=== PATIENT | male | born 2000 | race Caucasian/White ===

== ENCOUNTER 2024-10-24 12:49 | Inpatient (IN) | payer OTHER, SELFPAY ==
[2024-10-24] VITALS (19 sets, daily range): BP systolic 93–122; BP diastolic 47–68; PULSE 60–111; RESP 14–22; TEMP 36.6–37.1; O2SAT 96–100; BMI 21.3
--- NOTE | ~2024-10-24 | XR_ITS ---
EXAMINATION: XR chest 1V portable Exam Date/Time: 10/24/2024 15:00 CDT HISTORY: syncopy Comparison: None. RESULT: Lines, tubes, and devices: None. Lungs and pleura: Clear. Cardiomediastinal silhouette: Normal. Other: No acute osseous or upper abdominal finding. IMPRESSION: No acute cardiopulmonary process. Reviewed, dictated and finalized at location K.
--- NOTE | ~2024-10-24 | CT_ITS ---
EXAMINATION: CT brain wo con DATE: 10/24/2024 13:41 INDICATION: Fall. Head injury. TECHNIQUE: Computed tomography (CT) of the head was performed without intravenous contrast. The dose- length product was 681.00 mGy-cm. COMPARISON: None FINDINGS: No acute intracranial hemorrhage. No mass effect. No midline shift. Hydrocephalus. No skull fracture identified. Visualized cranial sinuses and mastoid air cells are clear. IMPRESSION: 1. No acute intracranial process identified. Reviewed, dictated and finalized at location A.
--- NOTE | ~2024-10-24 | CT_ITS ---
CLINICAL INDICATION: Elevated transaminases COMPARISON: None. TECHNIQUE: Multiple contiguous axial images of the abdomen and pelvis were performed without the admi nistration of intravenous contrast The dose-length product (DLP) was 232.51 mGy-cm. Automated exposure control and iterative reconstruction technique were employed. FINDINGS/OBSERVATIONS: Visualized lower thorax: The bilateral lung bases are clear. The heart is of normal size, without pericardial effusion. Liver: The liver demonstrates homogeneous attenuation and is borderline enlarged measuring 19 cm in longitud inal dimension. Gallbladder and biliary system: The gallbladder is only minimally distended, and otherwise unremarkable. Pancreas: Limited evaluation of the pancreas secondary to the lack of intravenous contrast. Spleen: The spleen demonstrates homogeneous attenuation and is not enlarged. Kidneys: The bilateral kidneys are without hydronephrosis or renal calculi. Adrenal glands: Unremarkable. Gastrointestinal tract: Fecal stasis within the colon. Appendix: The appendix is not definitively visualized. However, no pericecal inflammatory change is identified suggest the presence of acute appendicitis. Vasculature: Unremarkable. Lymph nodes: Limited evaluation without intravenous contrast or intra-abdominal fat. Pelvic structures: The bladder is only minimally distended, and otherwise unremarkable. The prostate gland is not enlarged. Body wall and musculoskeletal: No significant degenerative disease within the lower thoracic or lumbosacral spine. IMPRESSION: Unremarkable noncontrast enhanced CT examination of the abdomen and pelvis, as detailed above. Reviewed, dictated and finalized at location A.
--- NOTE | ~2024-10-24 | CT_ITS ---
EXAMINATION: CTA chest PE protocol DATE: 10/25/2024 22:13 CDT INDICATION: Abnormal cardiac echo with increased right atrial pressure for which pulmonary embolus wa s suspected. TECHNIQUE: Computed tomographic angiography (CTA) of the chest was performed with 100 mL Omnipaque-35 0 intravenous contrast. The dose-length product was 255.15 mGy-cm. Maximum intensity projection 3D-re constructions of the aorta and other arteries were constructed by the technologist on a separate work station. COMPARISON: None. FINDINGS/OBSERVATIONS: PULMONARY ARTERIES: No filling defect is identified within the main or proximal pulmonary artery. The main pulmonary artery is not enlarged. Reflux of intravenous contrast into the hepatic veins and inferior vena cava is identified. THORACIC AORTA: No aneurysmal dilatation or dissection is present. The great vessels are intact LUNGS: The lungs are clear. MEDIASTINUM: No morphologically suspicious or pathologically enlarged lymph nodes are identified with in the mediastinum or bilateral axilla. BONES OF THE CHEST: No acute fracture. No significant degenerative disease. No lytic or blastic lesions. HEART: The heart is of normal size, without pericardial effusion. IMPRESSION: No pulmonary embolus. No thoracic aortic dissection. The lungs are clear. Reviewed, dictated and finalized at location A.
--- NOTE | 2024-10-24 12:57 | ECG_ITS ---
Test Date: 2024-10-24 13:02:51 Measurements Intervals [place] Rate: 109 P: 77 ND: 159 QRS: 92 QRSD: 101 T: 14 QT: 324 QTc: 436 Interpretive Statements SINUS TACHYCARDIA RIGHT AXIS DEVIATION POSSIBLE RIGHT ATRIAL ENLARGEMENT LEFT ATRIAL ENLARGEMENT DELAYED PRECORDIAL R/S TRANSITION MINIMAL Q WAVES- INF/LAT LEADS ST ELEVATION IN ANTERIOR LEADS, PROBABLY EARLY REPOLARIZATION ABNORMAL ECG No previous ECG available for comparison Electronically Signed On 10-24-2024 13:20:40 CDT by Buster Escobar D.O.
--- OUTSIDE RECORDS SUMMARY | 2024-10-24 13:01 | XMS_ITS | Clinical Summary ---
Author Organization [facility] Address [address] [place] [address] Care Team Providers Care Hospitality Internship Name Role Phone Alex Steve MD Primary Care Provider +1- [phone] Source Comments [facility],non-owned Affiliates and Associated Physician Practices is amultiple site organization consisting of ambulatory clinics and hospital sitesin [place], [place], [place] and [place]. This disclosure is being madepursuant to the Care Everywhere program and may not contain all information available regarding this patient. Last updated 17.[facility] simplifyMD Allergies Active Allergy Reactions Criticality Noted Date Comments Penicillins Rash Medium 10/20/2020 Medications * Be aware that medications may not be up to date on this document. Alwaysverify current medications with the patient. No known medications Active Problems No known active problems Immunizations Immunization Administration Dates Next Due Anita Estrada primary monoval ent 12+ yr 0.3mL Purple cap 07/28/2020,07/03/2020 DTP 06/16/2006, 4,2002,07/31,2002 DTaP VACCINE IM (6wk-6yrs) 06/16/2006,,2002,07/31,2002 FLU VACCINE QUAD IIV4 SPLIT 0.25 ML IM 8 FLU VACCINE TRI IIV3 SPLIT P F IM (FLUVIRIN) 12/20/2012,12/21/2011 HEP A PEDS 2 DOSE 03/29/2005,03/30/2004 HEP B VACCINE, PED/ADOL 11/04/2016,07/31,2002,03/26 HIB-PRP-OMP 3 DOSE 10/07/2003,2002, 003 HIB-PRP-T 4 DOSE 06/16/2006, 3,2002,05/21 Human Papilloma Virus Nineva lent Vaccine 06/02/2021,02/03/2021,10/20/2020 INFLUENZA VACCINE 01/02/2020, 9,12/29/2017,12/26,01/05/2015 INFLUENZA VACCINE, QUADR. (F LUZONE; FLULAVAL; FLUARIX; AFLURIA QUADRIVALENT; 6MO+), 0.5 ML (IIV4) 03/08/2022,12/28/2020,01/02/2020,12/25,12/26/2016,12/18/2015,01/05/2015 ,12/09/2013 MENINGOCOCAL MENINGITIS 11/22/2018,09/11/2013 MENINGOCOCCAL ACWY (MCV4P) VAC IM 09/11/2013 MENINGOCOCCAL ACWY MENVEO 11/22/2018 MMR 08/03/2007,07/02/2003 Meningococcal B Recombinant 2 Dose, IM 9,11/22/2018 PNEUMOCOCCAL PCV7 CONJ, PEDS 11/04/2016, 03/30/2004,2002,07/31,2002 POLIO IPV 06/16/2006, 3,2002,05/21 TDAP (7yrs+) 03/01/2024,09/11/2013 VARICELLA 08/03/2007,04/01/2003 Family History Medical History Relation Name Comments ADD/ADHD Brother 1 Rashi ADD/ADHD Brother 2 Richard Hyperlipidemia Father Hypertension Father Asthma Mother Hypertension Mother Relation Name Status Comments Brother 1 Rashi Alive Brother 2 Richard Alive Father Alive Mother Alive Social History Tobacco Use Types Packs/Day Years Used Date Smoking Tobacco: Never Smokeless Tobacco: Never Alcohol Use Standard Drinks/Week Comments Never 0 (1 standard drink = 0.6 oz pur e alcohol) PHQ-2 Answer Date Recorded PHQ2 TOTAL SCORE 0 10/20/2020 Sex and Gender Information Value Date Recorded Sex Assigned at Not on file Legal Sex Male 11:56 AM CDT Gender Identity Not on file Sexual Orientation Not on file Last Filed Vital Signs Vital Sign Reading Time Taken Comments Blood Pressure 118/80 03/01/2024 11:48 AM FOOTBALL PAD REPAIRER Pulse 44 03/01/2024 11:48 AM FOOTBALL PAD REPAIRER Temperature 36.1 C (97 F) 03/01/2024 11:48 AM FOOTBALL PAD REPAIRER Respiratory Rate - - Oxygen Saturation 99% 03/01/2024 11:48 AM FOOTBALL PAD REPAIRER Inhaled Oxygen Concentration - - Weight 75.3 kg (166 lb) 03/01/2024 11:48 AM FOOTBALL PAD REPAIRER Height 182.9 cm (6') 03/01/2024 11:48 AM FOOTBALL PAD REPAIRER Body Mass Index 22.51 03/01/2024 11:48 AM FOOTBALL PAD REPAIRER Plan of Treatment Health Maintenance Due Date Last Done Comments COVID-19 VACCINE (2023-2 5 season) 2023 07/28/2020, 07/03/2020 DEPRESSION SCREENING 03/13/2024 INFLUENZA VACCINE (#1) 2024 , 12/28/2020, 01/02/2020, Additional history exists DTAP/TDAP/TD VACCINES (8 - T d or Tdap) 03/01/2034 03/01/2024, 09/11/2013, 06/16/2006, Additional history exists ZOSTER VACCINE (1 of 2) 2052 HIB VACCINE Completed 06/16/2006, 09/11, 2002, Additional history exists HEPATITIS B VACCINE Completed 11/04/2016, 2002, 2002, Additional history exists PNEUMOCOCCAL VACCINE Completed 11/04/2016, 03/30/2004, 2002, Additional history exists MENINGOCOCCAL GROUPS A/C/Y/W VACCINE Completed 11/22/2018, 11/22/2018, 09/11/2013, Additional history exists MENINGOCOCCAL (Group B) VACC INE SHARED DECISION-MAKING Completed 12/25/2018, 11/22/2018 HPV VACCINE Completed 06/02/2021, 01/12, 10/20/2020 HEPATITIS C SCREENING Discontinued HIV SCREENING Discontinued Insurance [facility] Care Teams Hospitality Internship Relationship Specialty Start Date End Date Alex Steve MD [address] [place] [address] PCP - General Family Medicine 03/01/24
--- OUTSIDE RECORDS SUMMARY | 2024-10-24 13:01 | XMS_ITS | Clinical Summary ---
Author Organization [facility] Address [address] 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
--- OUTSIDE RECORDS SUMMARY | 2024-10-24 13:02 | XMS_ITS | Encounter Summary ---
Author Organization [facility] Address [address] [place] [address] Care Team Providers Care Library Aide Name Role Phone Unavailable Primary Care Provider Unavailabl e Encounter Details Date Type Department Care Team (Late st Contact Info) Description 2002 Outpatient Historical [facility] Hearing Services [address] [address] Kaelyn Anderson AU.D [address] [place] [address] Social History Tobacco Use Types Packs/Day Years Used Date Smoking Tobacco: Never Assessed Sex and Gender Information Value Date Recorded Sex Assigned at Not on file Legal Sex Male 4:43 AM PHYSICAL THERAPIST CLINIC DIRECTOR Gender Identity Not on file Sexual Orientation Not on file documented as of this encounter Plan of Treatment Not on file documented as of this encounter Visit Diagnoses Not on filedocumented in this encounter
--- OUTSIDE RECORDS SUMMARY | 2024-10-24 13:02 | XMS_ITS | Encounter Summary ---
Author Organization [facility] Address [address] 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
--- OUTSIDE RECORDS SUMMARY | 2024-10-24 13:02 | XMS_ITS | Encounter Summary ---
Author Organization [facility] Address [address] [place] [address] Care Team Providers Care Strawhat Blocking Operator Name Role Phone Unavailable Primary Care Provider Unavailabl e Encounter Details Date Type Department Care Team (Late st Contact Info) Description 2002 Outpatient Historical [facility] Pediatrics [facility] [address] [address] Fariha Rasheed MD NO ADDRESS ON FILE Social History Tobacco Use Types Packs/Day Years Used Date Smoking Tobacco: Never Assessed Sex and Gender Information Value Date Recorded Sex Assigned at Not on file 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
[2024-10-24] MEDS: LACTATED RINGERS 3,000 ML 999 ML (13:20)
--- NOTE | 2024-10-24 13:22 | ED_ITS ---
HPI - Syncope General Chief Complaint: Syncope Stated Complaint: passed out while running Time Seen by Provider: 10/24/24 13:00 History of Present Illness HPI narrative: This is a 24-year-old male with no significant past medical history presents to the ED for syncope. Patient states that he does not recall waking up this morning. He states that he went for a run and came back and nearly syncopized. He had nausea and 1 episode of emesis. He did feel better after this. Parents noted that he only ran 2 miles per his appetite which is very unusual for him. He has previously round 10 miles in 100 degree weather with no issue no medicines. Parents that he did have some dirt on his face and some scrapes to his face and left arm but he did not have prior to leaving. Patient does not recall falling. He reports no pains at this time. No family history of sudden cardiac . Related Data Home Medications ?Medication ?Instructions ?Recorded ?Confirmed ?Last Taken ?Type No Home Medications 10/24/24 10/24/24 Unknown History Allergies Allergy/AdvReac Type Severity Reaction Status Date / Time Penicillins AdvReac Unknown Rash Verified 10/24/24 13:20 Review of Systems 2 Review of Systems: Gen.: Denies fevers or chills Eyes: Denies eye pain or visual change ENT: Denies congestion Respiratory: Denies shortness of breath or cough CV: Denies chest pain or palpitations GI: Denies abdominal pain nausea, emesis or diarrhea denies burning, urgency, frequency or hematuria Musculoskeletal: Denies back pain or muscle pain Neuro: Denies numbness, tingling, weakness or focal weakness Skin: Denies rash Except as documented, all other systems reviewed and negative [facility] Past Medical History Medical History No significant past medical history Exam 2 Narrative: APPEARANCE: No acute distress, nontoxic, resting in bed EYES: EOMI HEENT: Normocephalic, OMM. Abrasions to the face. Less than 1 cm laceration to the posterior scalp. Abrasion over the left shoulder. RESPIRATORY: No respiratory distress Clear to auscultation bilaterally with no rhonchi wheezing or rales. CARDIOVASCULAR: Tachycardic. Regular rhythm without murmurs rubs or gallops. ABDOMINAL: Soft, nontender, nondistended, no rebound or guarding MUSCULOSKELETAl: Moves all extremities. No clubbing, cyanosis or edema. No tenderness to palpation to the bony aspects of the left shoulder. NEURO: Awake and alert. Following commands, speech normal, no focal deficits SKIN:: Warm, dry. No rashes lesions or abrasions PSYCHIATRIC: Normal affect/mood, Course Vital Signs Vital signs: Vital Signs Temperature 98.8 F 10/24/24 13:00 Pulse Rate 105 H 10/24/24 13:00 Respiratory Rate 16 10/24/24 13:00 Blood Pressure 116/62 10/24/24 13:00 Pulse Oximetry 100 10/24/24 13:00 Oxygen Delivery Room Air 10/24/24 13:00 Temperature 98.8 F 10/24/24 13:00 Pulse Rate 66 10/24/24 17:00 Respiratory Rate 20 10/24/24 17:00 Blood Pressure 107/55 L 10/24/24 17:00 Pulse Oximetry 98 10/24/24 17:00 Oxygen Delivery Room Air 10/24/24 13:00 MDM - Syncope MDM Narrative Medical decision making narrative: 24-year-old male who presents to the ED for syncope. Initially tachycardic. He was A/O x4 on my evaluation. He had no recollection of the events prior to him throwing up EKG was obtained which showed no evidence of HOCM or acute FL. labs did reveal elevated creatinine 2.5 and slightly elevated CPK at 250. Potassium slightly elevated at 5.2. Patient given 3L LR. Troponin was elevated. Spoke with cardiology, will see as a consult and for echo. Spoke with hospitalist who will admit the patient. Differential Diagnosis Differential diagnosis: Likely syncope due to orthostatic hypotension, vasovagal syncope, dehydration and other (cardiogenic syncope, drug intoxication, electrolyte abnormality) Lab Data 10/24/24 13:18 10/24/24 13:18 Labs: Lab Results 10/24/24 10/24/24 10/24/24 Range/Units 13:16 13:17 13:18 WBC 20.4 H (4.5-10.0) K/mm3 RBC 5.77 (4.6-6.20) M/mm3 Hgb 18.1 H (14.0-18.0) g/dL Hct 54.0 H (42.0-52.0) % MCV 93.6 (80-100) fl MCH 31.4 (26-34) pg MCHC 33.5 (32-36) g/dl RDW 13.8 (11.5-14.5) % Plt Count 274 (150-375) k/mm3 MPV 10.0 (7.4-10.4) fl Immature Gran % (Auto) Not Reportable Neut % (Auto) Not Reportable Lymph % (Auto) Not Reportable Petroleum % (Auto) Not Reportable Eos % (Auto) Not Reportable Baso % (Auto) Not Reportable Lymph # (Auto) Not Reportable Petroleum # (Auto) Not Reportable Eos # (Auto) Not Reportable Baso # (Auto) Not Reportable Abs Immat Gran (auto) Not Reportable Absolute Neuts (auto) Not Reportable Absolute Nucleated RBC Not Reportable Total Counted 100 Neutrophils % (Manual) 65 (46-73) % Band Neutrophils % 13 H (0-6) % Lymphocytes % (Manual) 13 L (18-44) % Monocytes % (Manual) 8 (3-9) % Basophils % (Manual) 1 (0-1) % Nucleated RBC % Not Reportable Abs Neuts (Manual) 15.91 H (1.3-6.7) K/mm3 Abs Lymphs (Manual) 2.65 (1.1-4.5) K/mm3 Abs Monocytes (Manual) 1.63 H (0.1-0.90) K/mm3 Abs Basophils (Manual) 0.20 H (0.0-0.1) K/mm3 Hypersegmented Neuts Present Platelet Estimate Adequate (Adequate) Schistocytes None seen D-Dimer 1.76 H (<0.48) ug/mL Sodium 144 (137-145) mmol/L Potassium 5.2 H (3.4-5.0) mmol/L Chloride 105 (98-107) mmol/L Carbon Dioxide 23 (22-30) mmol/L Anion Gap 16 H (4-12) mmol/L BUN 24 H (9-20) mg/dL Creatinine 2.34 H (0.7-1.3) mg/dL Estim Creat Clear Calc 44 ml/min Estimated GFR 35 L (59 - ) Glucose 134 H (65-110) mg/dL POC Capillary Glucose 128 H (65-105) mg/dl Calcium 11.1 H (8.4-10.2) mg/dL Total Bilirubin 1.4 H (0.2-1.3) mg/dL AST 74 H (17-59) U/L ALT 41 (6-50) U/L Alkaline Phosphatase 88 (38-126) U/L Total Creatine Kinase 353 H (55-170) U/L Troponin I 0.273 H* (0.000-0.034) ng/mL NT-Pro-B Natriuret Pep 258 H (19.9-100) pg/mL Total Protein 10.8 H (6.3-8.2) g/dL Albumin 5.8 H (3.5-5.1) g/dL Influenza A (RT-PCR) (Negative) Influenza B (RT-PCR) (Negative) RSV (RT-PCR) (Negative) SARS-CoV-2 RNA (RT-PCR) (Negative) 10/24/24 10/24/24 Range/Units 15:22 15:49 WBC (4.5-10.0) K/mm3 RBC (4.6-6.20) M/mm3 Hgb (14.0-18.0) g/dL Hct (42.0-52.0) % MCV (80-100) fl MCH (26-34) pg MCHC (32-36) g/dl RDW (11.5-14.5) % Plt Count (150-375) k/mm3 MPV (7.4-10.4) fl Immature Gran % (Auto) Neut % (Auto) Lymph % (Auto) Petroleum % (Auto) Eos % (Auto) Baso % (Auto) Lymph # (Auto) Petroleum # (Auto) Eos # (Auto) Baso # (Auto) Abs Immat Gran (auto) Absolute Neuts (auto) Absolute Nucleated RBC Total Counted Neutrophils % (Manual) (46-73) % Band Neutrophils % (0-6) % Lymphocytes % (Manual) (18-44) % Monocytes % (Manual) (3-9) % Basophils % (Manual) (0-1) % Nucleated RBC % Abs Neuts (Manual) (1.3-6.7) K/mm3 Abs Lymphs (Manual) (1.1-4.5) K/mm3 Abs Monocytes (Manual) (0.1-0.90) K/mm3 Abs Basophils (Manual) (0.0-0.1) K/mm3 Hypersegmented Neuts Platelet Estimate (Adequate) Schistocytes D-Dimer (<0.48) ug/mL Sodium (137-145) mmol/L Potassium (3.4-5.0) mmol/L Chloride (98-107) mmol/L Carbon Dioxide (22-30) mmol/L Anion Gap (4-12) mmol/L BUN (9-20) mg/dL Creatinine (0.7-1.3) mg/dL Estim Creat Clear Calc ml/min Estimated GFR (59 - ) Glucose (65-110) mg/dL POC Capillary Glucose (65-105) mg/dl Calcium (8.4-10.2) mg/dL Total Bilirubin (0.2-1.3) mg/dL AST (17-59) U/L ALT (6-50) U/L Alkaline Phosphatase (38-126) U/L Total Creatine Kinase (55-170) U/L Troponin I 0.575 H* D (0.000-0.034) ng/mL NT-Pro-B Natriuret Pep (19.9-100) pg/mL Total Protein (6.3-8.2) g/dL Albumin (3.5-5.1) g/dL Influenza A (RT-PCR) Negative (Negative) Influenza B (RT-PCR) Negative (Negative) RSV (RT-PCR) Negative (Negative) SARS-CoV-2 RNA (RT-PCR) Negative (Negative) ECG Data EKG #1: Attestation: I personally reviewed and interpreted this ECG as follows: ECG completion date: 10/24/24 ECG completion time: 13:02 Prior ECG tracings: not available for review EKG Interpretation: tachycardia, sinus rhythm, non-specific ST changes, NL axis and other (no dagger q waves) Discharge Plan Discharge Clinical Impression: Syncope, Elevated troponin, PAMELA (acute kidney injury) Rhabdomyolysis Qualifiers: Rhabdomyolysis type: non-traumatic Qualified Code(s): M62.82 - Rhabdomyolysis Patient Disposition: Still a Patient Condition: Stable
[2024-10-24 13:32] LABS: Hematocrit 54.0 % (42.0-52.0); Hemoglobin 18.1 g/dL (14.0-18.0); Mean Corpuscular HGB Conc 33.5 g/dl (32-36); Mean Corpuscular Hemoglobin 31.4 pg (26-34); Mean Corpuscular Volume 93.6 fl (80-100); Platelet Count Result 274 k/mm3 (150-375); Red Blood Count 5.77 M/mm3 (4.6-6.20); White Blood Count 20.4 K/mm3 (4.5-10.0)
[2024-10-24 13:41] LABS: Alanine Aminotransferase 41 U/L (6-50); Albumin Level 5.8 g/dL (3.5-5.1); Alkaline Phosphatase 88 U/L (38-126); Anion Gap 16 mmol/L (4-12); Aspartate Amino Transferase 74 U/L (17-59); Bilirubin,Total 1.4 mg/dL (0.2-1.3); Blood Urea Nitrogen 24 mg/dL (9-20); Calcium 11.1 mg/dL (8.4-10.2); Carbon Dioxide 23 mmol/L (22-30); Chloride 105 mmol/L (98-107); Estimated CRCL calculation 44 ml/min; Estimated Glomerular Filt Rate 35; Glucose 134 mg/dL (65-110); Potassium 5.2 mmol/L (3.4-5.0); Sodium 144 mmol/L (137-145); Total Protein 10.8 g/dL (6.3-8.2)
--- OUTSIDE RECORDS SUMMARY | 2024-10-24 13:46 | XMS_ITS | Clinical Summary ---
Author Organization [facility] Address [address] 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
--- OUTSIDE RECORDS SUMMARY | 2024-10-24 13:46 | XMS_ITS | Clinical Summary ---
Author Organization [facility] Address [address] [address] Care Team Providers Care Welding Machine Operator Helper Gas Name Role Phone Alex Steve MD Primary Care Provider +1- [phone] Source Comments [facility],non-owned Affiliates and Associated Physician Practices is amultiple site organization consisting of ambulatory clinics and hospital sitesin [place], [place], [place] and [place]. This disclosure is being madepursuant to the Care Everywhere program and may not contain all information available regarding this patient. Last updated 17.[facility] ServiceBench Allergies Active Allergy Reactions Criticality Noted Date [...] Comments Blood Pressure 118/80 03/01/2024 11:48 AM ACCOUNT SERVICE REPRESENTATIVE Pulse 44 03/01/2024 11:48 AM ACCOUNT SERVICE REPRESENTATIVE Temperature 36.1 C (97 F) 03/01/2024 11:48 AM ACCOUNT SERVICE REPRESENTATIVE Respiratory Rate - - Oxygen Saturation 99% 03/01/2024 11:48 AM ACCOUNT SERVICE REPRESENTATIVE Inhaled Oxygen Concentration - - Weight 75.3 kg (166 lb) 03/01/2024 11:48 AM ACCOUNT SERVICE REPRESENTATIVE Height 182.9 cm (6') 03/01/2024 11:48 AM ACCOUNT SERVICE REPRESENTATIVE Body Mass Index 22.51 03/01/2024 11:48 AM ACCOUNT SERVICE REPRESENTATIVE Plan of Treatment Health Maintenance Due Date [...] C SCREENING Discontinued HIV SCREENING Discontinued Insurance [facility] Care Teams Welding Machine Operator Helper Gas Relationship Specialty Start Date End Date Alex Steve MD [address] [place] [address] PCP - General Family Medicine 03/01/24
--- OUTSIDE RECORDS SUMMARY | 2024-10-24 13:47 | XMS_ITS | Encounter Summary ---
Author Organization [facility] Address [address] Jay: [place] [address] Care Team Providers Care Senior Center Director Name Role Phone Unavailable Primary Care Provider Unavailabl e Encounter Details Date Type Department Care Team (Late st Contact Info) Description 2002 Inpatient Historical Fariha Rasheed MD NO ADDRESS ON FILE Beckie Savage MD [address] [place] [address] SINGL BORN IN HOSP-NO C/DELIVERY (Primary Dx) Social History Tobacco Use Types Packs/Day Years Used Date Smoking Tobacco: Never Assessed Sex and Gender Information Value Date Recorded Sex Assigned at Not on file Legal Sex Male 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
--- OUTSIDE RECORDS SUMMARY | 2024-10-24 13:47 | XMS_ITS | Encounter Summary ---
Author Organization [facility] Address [address] [place] [address] Care Team Providers Care Fur Repair Inspector Name Role Phone Unavailable Primary Care Provider Unavailabl e Encounter Details Date Type Department Care Team (Late st Contact Info) Description 2002 Outpatient Historical [facility] Hearing Services [address] [address] Kaelyn Anderson AU.D [address] [place] [address] Social History Tobacco Use Types Packs/Day Years Used Date Smoking Tobacco: Never Assessed Sex and Gender Information Value Date Recorded Sex Assigned at Not on file Legal Sex Male 4:43 AM AERODYNAMICS ENGINEER Gender Identity Not on file Sexual Orientation Not on file documented as of this encounter Plan of Treatment Not on file documented as of this encounter Visit Diagnoses Not on filedocumented in this encounter
--- OUTSIDE RECORDS SUMMARY | 2024-10-24 13:47 | XMS_ITS | Encounter Summary ---
Author Organization [facility] Address [address] [place] [address] Care Team Providers Care Home Health Travel Ot Name Role Phone Unavailable Primary Care Provider Unavailabl e Encounter Details Date Type Department Care Team (Late st Contact Info) Description 2002 Outpatient Historical [facility] Pediatrics [facility] [address] [address] Fariha Rasheed MD NO ADDRESS ON FILE Social History Tobacco Use Types Packs/Day Years Used Date Smoking Tobacco: Never Assessed Sex and Gender Information Value Date Recorded Sex Assigned at Not on file Legal Sex Male 4: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
[2024-10-24 13:53] LABS: Band Neutrophils Percent 13 % (0-6); Basophils Absolute Manual 0.20 K/mm3 (0.0-0.1); Basophils Percent Manual 1 % (0-1); Lymphocytes Absolute Manual 2.65 K/mm3 (1.1-4.5); Lymphocytes Percent Manual 13 % (18-44); Monocytes Absolute Manual 1.63 K/mm3 (0.1-0.90); Monocytes Percent Manual 8 % (3-9); Neutrophils Absolute Manual 15.91 K/mm3 (1.3-6.7); Neutrophils Percent Manual 65 % (46-73); Total Cells Counted 100
[2024-10-24 13:54] LABS: Hypersegmented Neutrophils Present; Schistocytes None Seen
[2024-10-24 14:06] LABS: Troponin I 0.273 ng/mL (0.000-0.034)
[2024-10-24 14:36] LABS: Creatine Kinase 353 U/L (55-170)
[2024-10-24 14:44] LABS: NT Pro B Type Natriuretic Pept 258 pg/mL (19.9-100)
[2024-10-24] MEDS: ACETAMINOPHEN 500 MG TABLET 1000 MG PO (15:17)
--- NOTE | 2024-10-24 15:55 | P.HP_ITS ---
H&P: HPI History of Present Illness Date/Time: 10/24/24 15:55 Chief Complaint: Suspected Syncope Narrative: 24 y/o M with no significant PMH presents here with suspected syncope. The patient presents here from home for further evaluation of suspected syncope and loss of time. He reports he when out for a 10 mile run this morning around 9:45 a.m. when he had a large loss of time. He reports his running apps showed he ran 6 miles and had a 2 mile cool down. Reports he made it back to his house when he had a syncopal event. Unsure of length of time. He initially did not remember how he got back home, memory has been slowly coming back. Arrived back home around 11:15 a.m. Per the patient's father, upon his arrival back to the house he was staggering around, confused, difficulty with recall, and vo miting. Family also reports he has dirt on his face and scrapes that he did not have prior to going on his run. Patient's 1st recollection he had initially after events was only vomiting at home. He denies any previous history of hypertrophic cardiomyopathy or family history of sudden cardiac . Patient's brother had a congenital heart defect which was repaired as a child. Maternal grandma may have had congenital heart failure and the patient's mother also has two maternal cousins with congenital heart issues. He reports he has previously run 10 miles in excessive heat (100? F) with no issues. He reports he ate breakfast prior to his run and had hydrated before his run. Patient is also reporting diarrhea. Nausea and vomiting have resolved. Per patient and his dad he has previously been screen for hypertrophic obstructive cardiomyopathy because of a local [facility] for a student who had from [facility] which offered limited echoes. Initial VS at presentation: 98.8? F, HR 105, R 16, 116/62, and 100% on room air. ED workup showed: WBC 20.4, hemoglobin 18.1, D-dimer elevated, potassium 5.2, creatinine 2.34 and GFR 35, glucose 134, calcium 11.1, albumin 5.8, CK 353, BNP 258 and normal for age, initial troponin 0.273. Head CT showed no acute intracranial process. CXR showed no acute cardiopulmonary process. EKG showed sinus tachycardia, rate 109, right axis deviation, possible right atrial enlargement, left atrial enlargement, delayed precordial RS transition, minimal Q-waves inferior/lateral leads, ST elevation in anterior leads probably early repolarization. Review of Systems Review of Systems: All systems reviewed & are unremarkable except as noted in HPI and below PMFSH Past Medical History Medical History No significant past medical history Social History Social History Smoking status: Never smoker Alcohol intake: current Substance use type: does not use Lack of Transportation: No Lack of Food: Never True Current Housing: I Have Housing Concerned About Future Housing: No Difficulty Paying Gas/Electric Bills: No Difficulty Paying for Meds: No Currently Unemployed: No Education: High School Diploma/GED Difficulty w/ Childcare or Family Care: No Spiritual care concerns: No Meds Home Medications and Allergies Home Medications ?Medication ?Instructions ?Recorded ?Confirmed ?Type No Home Medications 10/24/24 10/24/24 History Allergies Allergy/AdvReac Type Severity Reaction Status Date / Time Penicillins AdvReac Unknown Rash Verified 10/24/24 13:20 Vital Signs Vital Signs - 24 hr 10/24/24 13:00 10/24/24 13:14 10/24/24 13:17 Temperature 98.8 F Pulse Rate 105 H 110 H 111 H Respiratory Rate 16 22 H Blood Pressure 116/62 122/68 Pulse Oximetry 100 98 Oxygen Delivery Room Air 10/24/24 13:44 10/24/24 13:47 10/24/24 14:15 Temperature Pulse Rate 89 92 82 Respiratory Rate 20 20 18 Blood Pressure 110/65 116/62 98/49 L Pulse Oximetry 97 97 100 Oxygen Delivery 10/24/24 14:17 10/24/24 14:32 10/24/24 14:47 Temperature Pulse Rate 79 77 78 Respiratory Rate 16 20 20 Blood Pressure 93/47 L 110/61 115/67 Pulse Oximetry 98 96 100 Oxygen Delivery 10/24/24 15:02 10/24/24 15:17 10/24/24 15:32 Temperature Pulse Rate 80 74 74 Respiratory Rate 20 20 14 Blood Pressure 115/63 107/56 L 103/59 L Pulse Oximetry 100 99 100 Oxygen Delivery Exam Const: General: comfortable and no acute distress Other: , male, young adult, nontoxic appearance HENMT: Face/Nose/Sinus: Normal nares present Mouth: Yes moist mucous membranes Eyes: General: appearance normal, both eyes and all related structures Sclera: sclerae normal Pupils: Equal, round and reactive pupils present EOM: EOMs intact bilaterally Resp: Effort & Inspection: normal respiratory effort Auscultation: clear to auscultation bilaterally Cardio: Rate: regular rate Rhythm: regular rhythm Other: S1-S2 present without murmur, rub, ectopy GI: Other: Abdomen soft, nondistended, nontender. Normoactive bowel sounds in all quadrants. Skin: General skin exam: normal color and no rashes or lesions noted Wounds: no wounds Neuro: Speech: normal speech Motor exam (neuro): 5/5 motor strength present throughout Sensory Exam: normal sensation Other: A&O x4 Extrem: General: normal to inspection Psych: Mental Status: mental status grossly normal Affect: normal affect Other: Good insight and judgment, pleasant H&P: Results Labs Labs: Short CBC 10/24/24 Range/Units 13:18 WBC 20.4 H (4.5-10.0) K/mm3 Hgb 18.1 H (14.0-18.0) g/dL Hct 54.0 H (42.0-52.0) % Plt Count 274 (150-375) k/mm3 BMP 10/24/24 13:18 Sodium 144 Potassium 5.2 H Chloride 105 Carbon Dioxide 23 BUN 24 H Creatinine 2.34 H Glucose 134 H Calcium 11.1 H Cardiac Enzymes 10/24/24 10/24/24 Range/Units 13:17 13:18 Total Creatine Kinase 353 H (55-170) U/L Troponin I 0.273 H* (0.000-0.034) ng/mL Liver Function 10/24/24 Range/Units 13:18 Total Bilirubin 1.4 H (0.2-1.3) mg/dL AST 74 H (17-59) U/L ALT 41 (6-50) U/L Alkaline Phosphatase 88 (38-126) U/L Albumin 5.8 H (3.5-5.1) g/dL Assessment and Plan Assessment and plan (1) Syncope: Code(s): R55 - Syncope and collapse Status: Acute Assessment and Plan: - syncope that occurred post 6 mi run with 2 mi cool down, see HPI. Unclear length of time of loss of consciousness. - EKG initially showing sinus tachycardia, rate 109, right axis deviation, pos sible right atrial enlargement, left atrial enlargement, delayed precordial RS transition, minimal Q-waves inferior/lateral leads, ST elevation in anterior leads probably early repolarization. - troponin: 0.273 -> 0.575 -> 0.578, given 324 of ASA - BNP within normal limits for age, however given prolong syncope will check echo due to concerns for possible hypertrophic cardiomyopathy versus structural defect - hemoglobin slightly elevated, suspected acute kidney injury, and electrolyte derangements raise concerns for acute dehydration. will rehydrate. - UDS pending - viral PCR negative - cardiology consulted - admission to IMU with close telemetry monitoring DDx: Hypertrophic cardiomyopathy, cardiac structural defect, coronary artery disease, myocardial infarction, heat related syncope, acute dehydration. May be multifactorial and could be a combination of the aforementioned diagnoses. (2) Elevated troponin: Code(s): R79.89 - Other specified abnormal findings of blood chemistry Status: Acute Assessment and Plan: - see above (3) PAMELA (acute kidney injury): Code(s): N17.9 - Acute kidney failure, unspecified Status: Acute Assessment and Plan: - creatinine 2.34, BUN 24, GFR 35 upon admission with no prior available for comparison. Given patient is 24 with no comorbidities, high suspicion for acute kidney injury. - mild electrolyte derangements, increased hemoglobin, increased albumin raise suspicion for acute dehydration as etiology for PAMELA. Plan for rehydration over the next 24 hours. - CK elevated, trend - check urine sodium, protein/creatinine, urea - UA pending - monitor I&Os - consider nephrology consultation if patient is not improving with IV hydration (4) Rhabdomyolysis: Qualifiers: Rhabdomyolysis type: non-traumatic Qualified Code(s): M62.82 - Rhabdomyolysis Code(s): M62.82 - Rhabdomyolysis Status: Acute Assessment and Plan: - CK 353 - patient very active, runs/lips/when this regularly and was out for 6 mile run. Raises concerns for rhabdomyolysis secondary to strenuous exercise. Plan for IV hydration and trend CK/renal function. Plan Diet: Regular GI Prophylaxis: N/a DVT Prophylaxis: SCDs IV fluids: 1L bolus -> 125 mL/hour Lines/Tubes: Peripheral IV Code Status: Full code Quality VTE Prophylaxis VTE prophylaxis: mechanical ordered Hospitalist MIPS Advance Care Plan I have confirmed that the patient's Advanced Care Plan is present, code status is documented, or surrogate decision maker is listed in patient medical record.: Yes Medication Reconciliation I have utilized all available resources to obtain, update and review the patients current medications (includes all prescriptions, OTC, herbals, cannabis, and nutritional supplements).: Yes
[2024-10-24 16:05] LABS: Influenza A QL RT-PCR Negative (Negative); Influenza B QL RT-PCR Negative (Negative); RSV RNA, RT-PCR Negative (Negative); SARS-CoV-2 RNA PCR Negative (Negative)
[2024-10-24 16:24] LABS: Troponin I 0.575 ng/mL (0.000-0.034)
[2024-10-24] MEDS: ASPIRIN 81 MG CHEWABLE TABLET 324 MG PO (16:27)
--- NOTE | 2024-10-24 17:10 | PC.NURSE ---
Report given to HAILE Fowler
[2024-10-24 17:13] LABS: Cannabinoid Screen Urine Negative (Negative)
--- NOTE | 2024-10-24 17:13 | ECG_ITS ---
Test Date: 2024-10-24 17:19:50 Measurements Intervals [place] Rate: 61 P: 71 DC: 172 QRS: 86 QRSD: 101 T: 46 QT: 385 QTc: 388 Interpretive Statements SINUS RHYTHM POSSIBLE LEFT ATRIAL ENLARGEMENT MINIMAL Q WAVES- INFERIOR LEADS ST ELEVATION IN DIFFUSE LEADS, PROBABLY EARLY REPOLARIZATION BORDERLINE ECG Compared to ECG 10/24/2024 13:02:51 HEART RATE HAS DECREASED Electronically Signed On 10-24-2024 18:55:37 CDT by Buster Escobar D.O.
[2024-10-24 17:36] LABS: Add Urine Microscopic? YES; Appearance Urine Cloudy (Clear); Glucose Urine UA Trace mg/dL (Negative); Leukocyte Esterase Ur Negative LEU/UL (Negative); Need Manual Microscopic Reviewed; Nitrate Urine Negative (Negative); Non Pathogenic Casts >20; Specific Grav Ur 1.018 (1.001-1.035)
--- NOTE | 2024-10-24 17:50 | ADMGEN ---
This patient, Rainer Severino, was admitted to IMU Room 200-01. Patient/family oriented to hospital policies and general routines including ID bracelet, bed and alarms, visiting hours, pain management, procedures, bathroom and other care routines, personal items, smoking policy, room service/diet, and visiting hours. Information on how to activate the Rapid Response Team has been discussed. Patient/Family are encouraged to report perceived risks to care and to ask questions if they do not understand what they are told or what they should do.
[2024-10-24 17:54] LABS: Urea Random Urine 687 MG/DL
[2024-10-24 17:55] LABS: Total Protein Urine Random 180 mg/dL; Ur Ttl Prot Creatinine Ratio 0.73 mg/mg (0-0.20)
[2024-10-24] MEDS: LACTATED RINGERS 1,000 ML 125 ML IV CONT (18:19)
[2024-10-24 19:23] LABS: Troponin I 0.578 ng/mL (0.000-0.034)
[2024-10-25] VITALS (19 sets, daily range): BP systolic 115–137; BP diastolic 40–83; PULSE 38–75; RESP 14–18; TEMP 36.5–36.8; O2SAT 95–100
--- NOTE | 2024-10-25 | ECHO_ITS ---
Patient Info Name: Rainer Severino Age: 24 years : 2000 Gender: Male Ht: 71 in Wt: 152 lbs BSA: 1.85 m2 HR: 44 bpm BP: 115 / 51 mmHg Heart Rhythm: Bradycardia Technical Quality: Good Exam Date: 10/25/2024 10:36 AM Patient Status: I Admit Date: 10/24/2024 Exam Type: CA echo doppler color flow Complete two-dimensional, color flow and Doppler transthoracic echocardiogram is performed. Staff Referring Physician: Jovany Lawson Bilingual Teacher Assistant: Pat Alegria Attending Provider: Ld Mejia Summary 1. Complete two-dimensional, color flow and Doppler transthoracic echocardiogram is performed. 2. Left ventricular chamber dimension is normal. 3. There is no increased left ventricular wall thickness. 4. The left ventricular diastolic function is normal. 5. Left ventricular systolic function is low normal, estimated at 50-55. 6. There is mild mitral valve regurgitation. 7. There is mild tricuspid valve regurgitation. 8. There is mild pulmonic regurgitation. 9. Dilated inferior vena cava with <50% collapse upon inspiration consistent with elevated right atrial pressure, 15 mmHg. Left Ventricle Left ventricular chamber dimension is normal. Left ventricular systolic function is low normal, estimated at 50-55. There is no increased left ventricular wall thickness. The left ventricular diastolic function is normal. Right Ventricle Right ventricular chamber dimension is normal. Right ventricular systolic function is normal. Left Atria Left atrial chamber dimension is normal. Right Atria Right atrial chamber dimension is normal. Aortic Valve The aortic valve is trileaflet. There is no aortic valve sclerosis. There is no aortic valve stenosis. There is trace aortic valve regurgitation. Pulmonic Valve The pulmonic valve is normal. There is no pulmonic valve stenosis. There is mild pulmonic regurgitation. Mitral Valve The mitral valve has normal leaflets. There is no mitral valve stenosis. There is mild mitral valve regurgitation. Tricuspid Valve The tricuspid valve leaflets are normal. There is no significant tricuspid valve stenosis. There is mild tricuspid valve regurgitation. No pulmonary hypertension, estimated pulmonary arterial systolic pressure is 31 mmHg. Pericardium/Pleural The pericardium appears normal. There is no pericardial effusion. Inferior Vena Cava Dilated inferior vena cava with <50% collapse upon inspiration consistent with elevated right atrial pressure, 15 mmHg. Aorta The aortic root size at the sinus of Valsalva is normal. Left Ventricular Outflow Tract Name Value Normal LVOT 2D LVOT Diameter 1.9 cm LVOT Doppler LVOT Peak Velocity 108 cm/s LVOT Peak Gradient 5 mmHg LVOT Mean Gradient 3 mmHg LVOT VTI 26 cm LVOT VTI/AV VTI Ratio 0.7 LVOT Stroke Volume 75 ml LVOT CO 13.6 l/min LVOT CI 7.4 l/min/m2 Pulmonic Valve Name Value Normal PV Doppler PV Peak Velocity 83 cm/s PV Peak Gradient 3 mmHg Mitral Valve Name Value Normal MV Diastolic Function MV E Peak Velocity 104 cm/s MV A Peak Velocity 47 cm/s MV E/A 2.2 MV Decel Time (PW) 289 ms MV Annular TDI MV E/e' (Septal) 7.3 MV E/e' (Lateral) 6.2 MV E/e' (Average) 6.8 Tricuspid Valve Name Value Normal TV Regurgitation Doppler TR Peak Velocity 202 cm/s TR Peak Gradient 15 mmHg Estimated PAP/RSVP RA Pressure 15 mmHg <=5 PA Systolic Pressure 31 mmHg <36 RV Systolic Pressure 31 mmHg <36 TV Annular TDI TV Lateral Shereen s' Velocity 14.4 cm/s >=9.5 Aorta Name Value Normal Ascending Aorta Ao Root Diameter (MM) 2.4 cm Ao Root Diam Index (MM) 1.3 cm/m2 Aortic Valve Name Value Normal AV Doppler AV Peak Velocity 144 cm/s AV Peak Gradient 8 mmHg AV Mean Gradient 5 mmHg AV VTI 36 cm AV Area (Cont Eq VTI) 2.1 cm2 >=3.0 AV Area (Cont Eq Crow) 2.2 cm2 AV DI (Crow) 0.75 AV Regurgitation 2D LVOT Area 2.9 cm2 Ventricles Name Value Normal LV Dimensions 2D/MM IVS Diastolic Thickness (2D) 0.7 cm 0.6-1.0 LVID Diastole (2D) 4.9 cm 4.2-5.8 LVIW Diastolic Thickness (2D) 0.8 cm 0.6-1.0 LVID Systole (2D) 3.7 cm 2.5-4.0 LVOT Diameter 1.9 cm LV Mass (2D Cubed) 115.11 g 88.00-224.00 LV Mass Index (2D Cubed) 62 g/m2 49-115 Relative Wall Thickness (2D) 0.32 <=0.42 LV Fractional Shortening/Ejection Fraction 2D/MM LV Fractional Shortening (2D) 26 % 25-43 LV EF (2D Teichholz) 50 % LV Diastolic Volume (4C MOD) 142 ml LV EF (4C MOD) 55 % LV Diastolic Volume (2C MOD) 158 ml LV EF (2C MOD) 51 % LV Diastolic Volume (BP MOD) 159 ml 62-150 LV Diastolic Volume Index (BP MOD) 86 ml/m2 34-74 LV Systolic Volume (BP MOD) 75 ml 21-61 LV Systolic Volume Index (BP MOD) 41 ml/m2 11-31 LV EF (BP MOD) 53 % 52-72 LV Diastolic Length (4C) 9.3 cm LV Systolic Length (4C) 7.5 cm LV Stroke Volume (4C MOD) 78 ml RV Dimensions 2D/MM RVID Diastole (2D) 4.1 cm 2.1-3.5 Atria Name Value Normal LA Dimensions LA Dimension (MM) 3.2 cm 3.0-4.0 LA Volume (4C A-L) 43 ml LA Volume (BP A-L) 50 ml RA Dimensions RA Systolic Major Orange Length (4C) 4.7 cm 2.1-2.7 RA Area (4C) 19.2 cm2 <=18.0 Report Signatures
[2024-10-25] MEDS: LACTATED RINGERS 1,000 ML 125 ML IV CONT ×3 (02:00→21:25)
[2024-10-25 05:52] LABS: Hematocrit 43.5 % (42.0-52.0); Hemoglobin 14.0 g/dL (14.0-18.0); Immature Granulocyte Percent A 0.3 % (0-0.5); Lymphocytes Absolute Auto 1.93 K/mm3 (0.9-3.2); Mean Corpuscular HGB Conc 32.2 g/dl (32-36); Mean Corpuscular Hemoglobin 30.7 pg (26-34); Mean Corpuscular Volume 95.4 fl (80-100); Nucleated Red Blood Cells Absolute Auto 0.000 K/mm3 (0.0-0.012); Nucleated Red Blood Cells Perc 0.0 % (0.0-0.2); Platelet Count Result 153 k/mm3 (150-375); Red Blood Count 4.56 M/mm3 (4.6-6.20); White Blood Count 10.5 K/mm3 (4.5-10.0)
[2024-10-25 05:59] LABS: Alanine Aminotransferase 46 U/L (6-50); Albumin Level 3.8 g/dL (3.5-5.1); Alkaline Phosphatase 55 U/L (38-126); Anion Gap 7 mmol/L (4-12); Aspartate Amino Transferase 77 U/L (17-59); Bilirubin,Total 1.0 mg/dL (0.2-1.3); Blood Urea Nitrogen 23 mg/dL (9-20); Calcium 8.9 mg/dL (8.4-10.2); Carbon Dioxide 23 mmol/L (22-30); Chloride 107 mmol/L (98-107); Creatine Kinase 455 U/L (55-170); Estimated CRCL calculation 70 ml/min; Estimated Glomerular Filt Rate 59; Glucose 92 mg/dL (65-110); Magnesium 2.1 mg/dL (1.6-2.3); Potassium 3.8 mmol/L (3.4-5.0); Sodium 137 mmol/L (137-145); Total Protein 6.3 g/dL (6.3-8.2)
--- NOTE | 2024-10-25 08:20 | PM.IMPN ---
Progress Note: A&P Assessment and Plan (1) Syncope: Code(s): R55 - Syncope and collapse Status: Acute Assessment and Plan: - syncope that occurred post 6 mi run with 2 mi cool down, see HPI. Unclear length of time of loss of consciousness. - EKG initially showing sinus tachycardia, rate 109, right axis deviation, possible right atrial enlargement, left atrial enlargement, delayed precordial RS transition, minimal Q-waves inferior/lateral leads, ST elevation in anterior leads probably early repolarization. - troponin: 0.273 -> 0.575 -> 0.578, given 324 of ASA - BNP within normal limits for age, however given prolong syncope. Echo ordered - hemoglobin slightly elevated, suspected acute kidney injury, and electrolyte derangements raise concerns for acute dehydration. Continue rehydration - UDS negative - viral PCR negative - cardiology consulted (2) Elevated troponin: Code(s): R79.89 - Other specified abnormal findings of blood chemistry Status: Acute Assessment and Plan: Troponin trend reviewed. Echo ordered Cardiology consulted - see above (3) PAMELA (acute kidney injury): Code(s): N17.9 - Acute kidney failure, unspecified Status: Acute Assessment and Plan: - creatinine 2.34, BUN 24, GFR 35 upon admission with no prior available for comparison. Given patient is 24 with no comorbidities, high suspicion for acute kidney injury. - mild electrolyte derangements, increased hemoglobin, increased albumin raise suspicion for acute dehydration as etiology for PAMELA. Plan for rehydration over the next 24 hours. - CK elevated, trending upward - check urine sodium, protein/creatinine, urea - UA with the 11-20 urine WBC. Possible UTI follow urine culture will order ceftriaxone PAMELA already improving (4) Rhabdomyolysis: Qualifiers: Rhabdomyolysis type: non-traumatic Qualified Code(s): M62.82 - Rhabdomyolysis Code(s): M62.82 - Rhabdomyolysis Status: Acute Assessment and Plan: - CK 353. Trending up to 455 - patient very active, runs/lips/when this regularly and was out for 6 mile run. Raises concerns for rhabdomyolysis secondary to strenuous exercise. Plan for IV hydration and trend CK/renal function. Continue IV fluids Plan Diarrhea new stool culture ordered C diff pending Diet: Regular GI Prophylaxis: N/a DVT Prophylaxis: SCDs IV fluids: 1L bolus -> 125 mL/hour Lines/Tubes: Peripheral IV Code Status: Full code Subjective Date/time seen: 10/25/24 08:20 Interval history: He is feeling better. No overnight events. No nausea vomiting. Had diarrhea all night. Review of Systems Review of Systems: All systems reviewed & are unremarkable except as noted in HPI and below Exam Narrative: APPEARANCE: No acute distress, alert and oriented x3 EYES: EOMI HEENT: Normocephalic, OMM. Abrasions to the face. Less than 1 cm laceration to the posterior scalp. Abrasion over the left shoulder. RESPIRATORY: No respiratory distress Clear to auscultation bilaterally with no rhonchi wheezing or rales. CARDIOVASCULAR: Regular rate Regular rhythm without murmurs rubs or gallops. ABDOMINAL: Soft, nontender, nondistended, no rebound or guarding MUSCULOSKELETAL: Moves all extremities. No clubbing, cyanosis or edema. NEURO: Awake and alert. Following commands, speech normal, no focal deficits SKIN:: Warm, dry. No rashes lesions or abrasions PSYCHIATRIC: Normal affect/mood, Objective Data Vital Signs Vital Signs: Vital Signs - 24 hr 10/24/24 13:00 10/24/24 13:14 10/24/24 13:17 Temperature 98.8 F Pulse Rate 105 H 110 H 111 H Respiratory Rate 16 22 H Blood Pressure 116/62 122/68 Pulse Oximetry 100 98 Oxygen Delivery Room Air 10/24/24 13:44 10/24/24 13:47 10/24/24 14:15 Temperature Pulse Rate 89 92 82 Respiratory Rate 20 20 18 Blood Pressure 110/65 116/62 98/49 L Pulse Oximetry 97 97 100 Oxygen Delivery 10/24/24 14:17 10/24/24 14:32 10/24/24 14:47 Temperature Pulse Rate 79 77 78 Respiratory Rate 16 20 20 Blood Pressure 93/47 L 110/61 115/67 Pulse Oximetry 98 96 100 Oxygen Delivery 10/24/24 15:02 10/24/24 15:17 10/24/24 15:32 Temperature Pulse Rate 80 74 74 Respiratory Rate 20 20 14 Blood Pressure 115/63 107/56 L 103/59 L Pulse Oximetry 100 99 100 Oxygen Delivery 10/24/24 16:33 10/24/24 17:00 10/24/24 17:40 Temperature 98 F Pulse Rate 70 66 68 Respiratory Rate 16 20 16 Blood Pressure 107/57 L 107/55 L 109/55 L Pulse Oximetry 100 98 100 Oxygen Delivery 10/24/24 18:00 10/24/24 20:00 10/24/24 20:00 Temperature Pulse Rate 74 60 Respiratory Rate Blood Pressure Pulse Oximetry Oxygen Delivery Room Air 10/24/24 20:32 10/24/24 22:00 10/25/24 00:00 Temperature 98.3 F Pulse Rate 60 78 Respiratory Rate 16 Blood Pressure 121/56 L Pulse Oximetry 100 Oxygen Delivery Room Air 10/25/24 00:00 10/25/24 00:40 10/25/24 02:00 Temperature 98.2 F Pulse Rate 65 73 55 L Respiratory Rate 15 Blood Pressure 127/40 L Pulse Oximetry 97 Oxygen Delivery 10/25/24 04:00 10/25/24 04:00 10/25/24 05:08 Temperature 98.2 F Pulse Rate 75 41 L Respiratory Rate 14 Blood Pressure 115/51 L Pulse Oximetry 95 Oxygen Delivery Room Air 10/25/24 06:00 10/25/24 07:48 Temperature 98.2 F Pulse Rate 57 L 51 L Respiratory Rate 18 Blood Pressure 126/48 L Pulse Oximetry 97 Oxygen Delivery Intake/Output Intake/Output: Intake & Output 10/22/24 10/23/24 10/24/24 10/25/24 23:59 23:59 23:59 23:59 Intake Total 3540 1510.4 Output Total 1 400 Balance 3539 1110.4 Meds/Results Medications: Active Medications Generic Name Dose Route Start Last Admin Trade Name Freq PRN Reason Stop Dose Admin Acetaminophen 650 mg 10/24/24 16:14 Acetaminophen 325 Mg Tablet PO Q6H PRN Mild Pain (1-3) or Fever Lactated Ringer's 1,000 mls @ 125 mls/hr 10/24/24 16:00 10/25/24 02:00 Lr - Lactated Ringers Iv IV CONT 125 mls/hr .Q8H MISA Administration Ondansetron HCl 4 mg 10/24/24 16:14 Ondansetron Inj 4 Mg/2 Ml Vial IV PUSH Q6H PRN Nausea And Vomiting Perflutren Lipid Microsphere 0 ml 10/24/24 16:00 Perflutren Lipid Microspheres 1.5 Ml Vial Diluted To 10 Ml Total Volume IV PUSH 10/27/24 16:01 ONCE PRN adequate visualization Protocol Radiology Results: ITS Impressions Head CT 10/24/24 13:46 IMPRESSION: 1. No acute intracranial process identified. Chest X-Ray 10/24/24 15:32 IMPRESSION: No acute cardiopulmonary process. Labs Labs: Laboratory Results - last 24 hr 10/24/24 10/24/24 10/24/24 13:16 13:17 13:18 WBC 20.4 H RBC 5.77 Hgb 18.1 H Hct 54.0 H MCV 93.6 MCH 31.4 MCHC 33.5 RDW 13.8 Plt Count 274 MPV 10.0 Immature Gran % (Auto) Not Reportable Neut % (Auto) Not Reportable Lymph % (Auto) Not Reportable [place] % (Auto) Not Reportable Eos % (Auto) Not Reportable Baso % (Auto) Not Reportable Lymph # (Auto) Not Reportable [place] # (Auto) Not Reportable Eos # (Auto) Not Reportable Baso # (Auto) Not Reportable Abs Immat Gran (auto) Not Reportable Absolute Neuts (auto) Not Reportable Absolute Nucleated RBC Not Reportable Total Counted 100 Neutrophils % (Manual) 65 Band Neutrophils % 13 H Lymphocytes % (Manual) 13 L Monocytes % (Manual) 8 Basophils % (Manual) 1 Nucleated RBC % Not Reportable Abs Neuts (Manual) 15.91 H Abs Lymphs (Manual) 2.65 Abs Monocytes (Manual) 1.63 H Abs Basophils (Manual) 0.20 H Hypersegmented Neuts Present Platelet Estimate Adequate Schistocytes None seen D-Dimer 1.76 H Sodium 144 Potassium 5.2 H Chloride 105 Carbon Dioxide 23 Anion Gap 16 H BUN 24 H Creatinine 2.34 H Estim Creat Clear Calc 44 Estimated GFR 35 L Glucose 134 H POC Capillary Glucose 128 H Calcium 11.1 H Magnesium Total Bilirubin 1.4 H AST 74 H ALT 41 Alkaline Phosphatase 88 Total Creatine Kinase 353 H Troponin I 0.273 H* NT-Pro-B Natriuret Pep 258 H Total Protein 10.8 H Albumin 5.8 H Urine Color Urine Appearance Urine pH Ur Specific Lyman Urine Protein Urine Glucose (UA) Urine Ketones Ur Blood (Man) Urine Nitrate Urine Bilirubin Urine Urobilinogen Add Ur Microanalysis Leukocyte Esterase Rfl Urine RBC Urine WBC Ur Squamous Epith Cells Urine Bacteria Urine Casts Granular Casts U Random Total Protein Ur Random Sodium Ur Random Urea Urine Creatinine Protein/Creat Ratio 2 Urine Opiates Screen Urine Methadone Screen Ur Barbiturates Screen Ur Phencyclidine Scrn Ur Amphetamine Screen U Benzodiazepines Scrn Urine Cocaine Screen U Cannabinoids Screen Influenza A (RT-PCR) Influenza B (RT-PCR) RSV (RT-PCR) SARS-CoV-2 RNA (RT-PCR) 10/24/24 10/24/24 10/24/24 15:22 15:49 16:24 WBC RBC Hgb Hct MCV MCH MCHC RDW Plt Count MPV Immature Gran % (Auto) Neut % (Auto) Lymph % (Auto) [place] % (Auto) Eos % (Auto) Baso % (Auto) Lymph # (Auto) [place] # (Auto) Eos # (Auto) Baso # (Auto) Abs Immat Gran (auto) Absolute Neuts (auto) Absolute Nucleated RBC Total Counted Neutrophils % (Manual) Band Neutrophils % Lymphocytes % (Manual) Monocytes % (Manual) Basophils % (Manual) Nucleated RBC % Abs Neuts (Manual) Abs Lymphs (Manual) Abs Monocytes (Manual) Abs Basophils (Manual) Hypersegmented Neuts Platelet Estimate Schistocytes D-Dimer Sodium Potassium Chloride Carbon Dioxide Anion Gap BUN Creatinine Estim Creat Clear Calc Estimated GFR Glucose POC Capillary Glucose Calcium Magnesium Total Bilirubin AST ALT Alkaline Phosphatase Total Creatine Kinase Troponin I 0.575 H* D NT-Pro-B Natriuret Pep Total Protein Albumin Urine Color Dark yellow Urine Appearance Cloudy H Urine pH 5.5 Ur Specific Lyman 1.018 Urine Protein 3+ H Urine Glucose (UA) Trace H Urine Ketones Trace H Ur Blood (Man) Trace Urine Nitrate Negative Urine Bilirubin 1+ H Urine Urobilinogen 0.2 Add Ur Microanalysis Reviewed Leukocyte Esterase Rfl Negative Urine RBC 0-2 Urine WBC 11-20 H Ur Squamous Epith Cells Many H Urine Bacteria Rare Urine Casts >20 Granular Casts Present U Random Total Protein 180 Ur Random Sodium 37 Ur Random Urea 687 Urine Creatinine 247.1 Protein/Creat Ratio 2 0.73 H Urine Opiates Screen Negative Urine Methadone Screen Negative Ur Barbiturates Screen Negative Ur Phencyclidine Scrn Negative Ur Amphetamine Screen Negative U Benzodiazepines Scrn Negative Urine Cocaine Screen Negative U Cannabinoids Screen Negative Influenza A (RT-PCR) Negative Influenza B (RT-PCR) Negative RSV (RT-PCR) Negative SARS-CoV-2 RNA (RT-PCR) Negative 10/24/24 10/25/24 18:51 05:00 WBC 10.5 H RBC 4.56 L Hgb 14.0 D Hct 43.5 MCV 95.4 MCH 30.7 MCHC 32.2 RDW 14.0 Plt Count 153 MPV 10.5 H Immature Gran % (Auto) 0.3 Neut % (Auto) 69.6 Lymph % (Auto) 18.4 [place] % (Auto) 11.3 H Eos % (Auto) 0.0 Baso % (Auto) 0.4 Lymph # (Auto) 1.93 [place] # (Auto) 1.2 H Eos # (Auto) 0.0 Baso # (Auto) 0.0 Abs Immat Gran (auto) 0.03 Absolute Neuts (auto) 7.3 H Absolute Nucleated RBC 0.000 Total Counted Neutrophils % (Manual) Band Neutrophils % Lymphocytes % (Manual) Monocytes % (Manual) Basophils % (Manual) Nucleated RBC % 0.0 Abs Neuts (Manual) Abs Lymphs (Manual) Abs Monocytes (Manual) Abs Basophils (Manual) Hypersegmented Neuts Platelet Estimate Schistocytes D-Dimer Sodium 137 Potassium 3.8 Chloride 107 Carbon Dioxide 23 Anion Gap 7 BUN 23 H Creatinine 1.50 H Estim Creat Clear Calc 70 Estimated GFR 59 Glucose 92 POC Capillary Glucose Calcium 8.9 Magnesium 2.1 Total Bilirubin 1.0 AST 77 H ALT 46 Alkaline Phosphatase 55 Total Creatine Kinase 455 H Troponin I 0.578 H* NT-Pro-B Natriuret Pep Total Protein 6.3 Albumin 3.8 Urine Color Urine Appearance Urine pH Ur Specific Lyman Urine Protein Urine Glucose (UA) Urine Ketones Ur Blood (Man) Urine Nitrate Urine Bilirubin Urine Urobilinogen Add Ur Microanalysis Leukocyte Esterase Rfl Urine RBC Urine WBC Ur Squamous Epith Cells Urine Bacteria Urine Casts Granular Casts U Random Total Protein Ur Random Sodium Ur Random Urea Urine Creatinine Protein/Creat Ratio 2 Urine Opiates Screen Urine Methadone Screen Ur Barbiturates Screen Ur Phencyclidine Scrn Ur Amphetamine Screen U Benzodiazepines Scrn Urine Cocaine Screen U Cannabinoids Screen Influenza A (RT-PCR) Influenza B (RT-PCR) RSV (RT-PCR) SARS-CoV-2 RNA (RT-PCR)
[2024-10-25] MEDS: cefTRIAXone 1 GM in SODIUM CHLORIDE 0.9% IV 50 ML 100 ML IVPB (09:41)
--- NOTE | 2024-10-25 11:34 | P.CONCA_ITS ---
<Statement entered by Moess Mckeon MD - 10/25/24 18:40> This documentation has been reviewed and approved. Attending attestation: 24-year-old recently aggressively training. Accepted into the [employer] and to be reporting next week. Had been aggressively working out. Yesterday he had ran about a miles and extreme heat. Also dealing with some diarrhea. At the end of his run, he was weak and lethargic. Did not seem like he passed out but thought process was more deliberate than usual. Came to the hospital and was found to be in acute renal failure. Thought to be dehydrated. Renal function has now since normalized. Objective: Systolic blood pressure 118. General: Patient awake alert. Oriented appears stated age appears very fit HEENT normocephalic atraumatic Eyes: Anicteric Neck is supple Lungs clear to auscultation bilaterally Cardiac exam normal S1-S2 regular rhythm without murmur or gallop Abdomen soft nontender nondistended positive bowel sounds Extremities no edema Musculoskeletal no reproducible chest wall pain to palpation EKG personally reviewed and interpreted show normal sinus rhythm. Early repolarization. Normal ECG Troponins minimally abnormal Echocardiogram: EF 50 55% which is low normal. No significant valvular pathology. Assessment 1. Elevated troponin: This does not represent acute coronary syndrome. Likely related to dehydration/heat exhaustion from running 8 miles in extreme weather. Also in acute renal failure which may also be contributing to the elevated troponins. 2.: Acute renal failure: Related to dehydration: Improved with IV fluids. Plan: IV fluids. Cardiac workup complete. At this point, No long-term issues/concerns from a cardiac perspective with regards to his aspirations. Moses Mckeon MD, [facility] Patient is personally seen and examined. Labs reviewed EKGs reviewed echocardiogram reviewed. Agree with major contents of [employer] note. 37 minutes of shared decision making between personal evaluation the patient, history and physical, discussing with family as well as talking with hospitalist and nurse practitioner Neuro: Motor and sensory grossly intact Psych: Appropriate alert and oriented Assessment and Plan Assessment and plan (1) Elevated troponin: Code(s): R79.89 - Other specified abnormal findings of blood chemistry Status: Acute Assessment and Plan: 0.273, 0.575, 0.578, 0.060. In this situation, his elevated troponin is not related to acute coronary syndrome. Troponin leak is related to rhabdomyolysis and acute kidney injury. Echocardiogram has been ordered but do not recommend any further cardiac workup in this regard. (2) PAMELA (acute kidney injury): Code(s): N17.9 - Acute kidney failure, unspecified Status: Acute Assessment and Plan: Improving with IV fluids (3) Rhabdomyolysis: Qualifiers: Rhabdomyolysis type: non-traumatic Qualified Code(s): M62.82 - Rhabdomyolysis Code(s): M62.82 - Rhabdomyolysis Status: Acute Assessment and Plan: Improving with IV fluids (4) Syncope: Code(s): R55 - Syncope and collapse Status: Acute Assessment and Plan: This is most likely related to significant dehydration because of strenuous exercise in extreme heat. He does not have any significant bradycardia, high- degree blocks, pauses, or any tachyarrhythmias that would explain syncope. Echocardiogram is pending. If echocardiogram is unremarkable, patient can be discharged from the hospital from a cardiac perspective. History of Present Illness History of Present Illness Consult date/time: 10/25/24 11:34 Requesting physician: Jerald Rowan MD Consult reason: Other (syncope) Reason For Visit: Syncope/Rhabdomyolysis/PAMELA/Elevated Troponin Narrative: Rainer Severino is a 24-year-old male with no significant past medical history. This is a patient who comes to the hospital following a syncopal event. Cardiology is consulted because of syncope. 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 He has been running around 50 miles per week. Patient went for a planned 8 mi run yesterday and reports that he began to feel poorly during the last 2 miles of his run. When he arrived back to his house he lost consciousness in the driveway. He was brought to the emergency room by his family. At the time of initial presentation to the hospital, he was confused and did not have much memory of the events of the morning. However, by the time I obtained history from him, his recollection had returned and he was able to tell me that he remembers beginning to feel poorly during the last 2 miles of his run, noting that although it was supposed to be a cool down distance he felt very exhausted and the cold on required more effort than usual. Prior to losing consciousness upon arrival at home, he denies feeling any chest pain, palpitations, or shortness breath aside from his usual breathing pattern following a strenuous run. He began vomiting and had diarrhea when he regained consciousness. He has not been vomiting in the hospital but did have diarrhea all night and this morning. Aside from the diarrhea, he feels well does not have any specific complaints at this time. He has no history of a syncope. No family history of sudden cardiac or cardiovascular disease. [facility], [facility] Past Medical History Medical History No significant past medical history Social History Social History Smoking status: Never smoker Alcohol intake: current Substance use type: does not use Lack of Transportation: No Lack of Food: Never True Current Housing: I Have Housing Concerned About Future Housing: No Difficulty Paying Gas/Electric Bills: No Difficulty Paying for Meds: No Currently Unemployed: No Education: High School Diploma/GED Difficulty w/ Childcare or Family Care: No Spiritual care concerns: No Meds Home Medications and Allergies Home Medications ?Medication ?Instructions ?Recorded ?Confirmed ?Type No Home Medications 10/24/24 10/24/24 History Allergies Allergy/AdvReac Type Severity Reaction Status Date / Time Penicillins AdvReac Unknown Rash Verified 10/24/24 13:20 Vital Signs Vital Signs - 24 hr 10/24/24 13:00 10/24/24 13:14 10/24/24 13:17 Temperature 37.1 C Pulse Rate 105 H 110 H 111 H Respiratory Rate 16 22 H Blood Pressure 116/62 122/68 Pulse Oximetry 100 98 Oxygen Delivery Room Air 10/24/24 13:44 10/24/24 13:47 10/24/24 14:15 Temperature Pulse Rate 89 92 82 Respiratory Rate 20 20 18 Blood Pressure 110/65 116/62 98/49 L Pulse Oximetry 97 97 100 Oxygen Delivery 10/24/24 14:17 10/24/24 14:32 10/24/24 14:47 Temperature Pulse Rate 79 77 78 Respiratory Rate 16 20 20 Blood Pressure 93/47 L 110/61 115/67 Pulse Oximetry 98 96 100 Oxygen Delivery 10/24/24 15:02 10/24/24 15:17 10/24/24 15:32 Temperature Pulse Rate 80 74 74 Respiratory Rate 20 20 14 Blood Pressure 115/63 107/56 L 103/59 L Pulse Oximetry 100 99 100 Oxygen Delivery 10/24/24 16:33 10/24/24 17:00 10/24/24 17:40 Temperature 36.6 C Pulse Rate 70 66 68 Respiratory Rate 16 20 16 Blood Pressure 107/57 L 107/55 L 109/55 L Pulse Oximetry 100 98 100 Oxygen Delivery 10/24/24 18:00 10/24/24 20:00 10/24/24 20:00 Temperature Pulse Rate 74 60 Respiratory Rate Blood Pressure Pulse Oximetry Oxygen Delivery Room Air 10/24/24 20:32 10/24/24 22:00 10/25/24 00:00 Temperature 36.8 C Pulse Rate 60 78 Respiratory Rate 16 Blood Pressure 121/56 L Pulse Oximetry 100 Oxygen Delivery Room Air 10/25/24 00:00 10/25/24 00:40 10/25/24 02:00 Temperature 36.8 C Pulse Rate 65 73 55 L Respiratory Rate 15 Blood Pressure 127/40 L Pulse Oximetry 97 Oxygen Delivery 10/25/24 04:00 10/25/24 04:00 10/25/24 05:08 Temperature 36.8 C Pulse Rate 75 41 L Respiratory Rate 14 Blood Pressure 115/51 L Pulse Oximetry 95 Oxygen Delivery Room Air 10/25/24 06:00 10/25/24 07:48 10/25/24 08:00 Temperature 36.8 C Pulse Rate 57 L 51 L 55 L Respiratory Rate 18 Blood Pressure 126/48 L Pulse Oximetry 97 Oxygen Delivery 10/25/24 10:00 Temperature Pulse Rate 42 L Respiratory Rate Blood Pressure Pulse Oximetry Oxygen Delivery Exam 2 Const: General: comfortable, no acute distress, alert and awake O rientation/consciousness: patient oriented x3 HENMT: Head: normal to inspection Eyes: General: appearance normal, both eyes and all related structures P upils: Equal, round and reactive pupils present Neck: Neck: normal visual inspection, supple and no JVD Carotids: normal carotid upstroke Resp: Effort & Inspection: normal respiratory effort Auscultation: clear to auscultation bilaterally Cardio: Rate: regular rate Rhythm: regular rhythm Heart sounds: S1 normal heart sound present, S2 normal heart sound present and no murmurs GI: Auscultation: normal bowel sounds Skin: General skin exam: normal color Neuro: General: patient oriented x3 Cranial nerves: Yes Equal, round and reactive pupils present Extrem: General: normal to inspection Psych: Appearance: grossly normal Mental Status: mental status grossly normal Results Labs and Meds 10/25/24 05:00 10/25/24 05:00 Lab results: Cardiac Enzymes 10/24/24 10/24/24 10/24/24 Range/Units 13:18 15:49 18:51 AST 74 H (17-59) U/L Troponin I 0.273 H* 0.575 H* D 0.578 H* (0.000-0.034) ng/mL 10/25/24 Range/Units 05:00 AST 77 H (17-59) U/L Troponin I (0.000-0.034) ng/mL CBC 10/24/24 10/25/24 Range/Units 13:18 05:00 WBC 20.4 H 10.5 H (4.5-10.0) K/mm3 RBC 5.77 4.56 L (4.6-6.20) M/mm3 Hgb 18.1 H 14.0 D (14.0-18.0) g/dL Hct 54.0 H 43.5 (42.0-52.0) % Plt Count 274 153 (150-375) k/mm3 Lymph # (Auto) Not Reportable 1.93 [place] # (Auto) Not Reportable 1.2 H Eos # (Auto) Not Reportable 0.0 Baso # (Auto) Not Reportable 0.0 Comprehensive Metabolic Panel 10/24/24 10/25/24 Range/Units 13:18 05:00 Sodium 144 137 (137-145) mmol/L Potassium 5.2 H 3.8 (3.4-5.0) mmol/L Chloride 105 107 (98-107) mmol/L Carbon Dioxide 23 23 (22-30) mmol/L BUN 24 H 23 H (9-20) mg/dL Creatinine 2.34 H 1.50 H (0.7-1.3) mg/dL Glucose 134 H 92 (65-110) mg/dL Calcium 11.1 H 8.9 (8.4-10.2) mg/dL AST 74 H 77 H (17-59) U/L ALT 41 46 (6-50) U/L Alkaline Phosphatase 88 55 (38-126) U/L Total Protein 10.8 H 6.3 (6.3-8.2) g/dL Albumin 5.8 H 3.8 (3.5-5.1) g/dL Intake and Output 10/24/24 10/25/24 10/25/24 23:59 07:59 15:59 Intake Total 3540 1510.4 1010.4 Output Total 1 400 Balance 3539 1110.4 1010.4 Intake: IV 3000 960.4 1010.4 Lactated Ringers 3,000 ml @ 0 3000 mls/hr .ROUTE .[facility] Rx#: [id number] Lactated Ringers 1,000 ml @ 125 960.4 960.4 mls/hr IV CONT .Q8H [facility] Rx#: [id number] cefTRIAXone 1 gm In Sodium 50 Chloride 0.9% IV 50 ml @ 100 mls/hr IVPB Q24H [facility] Rx#: [id number] Oral 540 550 Output: Urine 1 400 Patient Weight 10/25/24 23:59 Weight 71.4 kg
[2024-10-25 13:45] LABS: Troponin I 0.060 ng/mL (0.000-0.034)
[2024-10-25 17:43] LABS: Alanine Aminotransferase 240 U/L (6-50); Albumin Level 4.1 g/dL (3.5-5.1); Alkaline Phosphatase 56 U/L (38-126); Anion Gap 5 mmol/L (4-12); Aspartate Amino Transferase 252 U/L (17-59); Bilirubin,Total 1.0 mg/dL (0.2-1.3); Blood Urea Nitrogen 13 mg/dL (9-20); Calcium 9.1 mg/dL (8.4-10.2); Carbon Dioxide 26 mmol/L (22-30); Chloride 108 mmol/L (98-107); Creatine Kinase 433 U/L (55-170); Estimated CRCL calculation 96 ml/min; Estimated Glomerular Filt Rate > 60; Glucose 92 mg/dL (65-110); Potassium 3.9 mmol/L (3.4-5.0); Sodium 139 mmol/L (137-145); Total Protein 6.9 g/dL (6.3-8.2)
[2024-10-25] MEDS: SODIUM CHLORIDE 0.9% IV 1,000 ML 999 ML IV CONT (18:58)
--- NOTE | 2024-10-25 19:03 | P.RRN_ITS ---
Critical Care Event Note Summary Code activated: No Narrative: Called to bedside by nursing staff. Patient was under the impression that he would be discharged today. Recheck today provider with recommendations for another cell labs. PAMELA has resolved however liver enzymes are now elevated, with positive D-dimer and vena cava enlarged cardiology recommending on PE protocol chest. Will add on CT non con of liver also. Patient's PAMELA has resolved will hydrate patient with a 1 L of fl uids prior to contrast dye. Express concerns with patient being discharged at this time with elevated liver enzymes family and patient are in agreement further workup. Bedside discussion with family and cardiology attending. CTA chest shows Reflux of intravenous contrast retrograde into the inferior vena cava suggests a component of right heart dysfunction, consistent with the elevated right atrial pressure seen on today's cardiac echo. Patient and family aware of results. Further orders depending on cardiology's recommendations. CT abdomen showing fecal stasis senna ordered liver demonstrates homogeneous attenuation and is borderline enlarged measuring 19 cm in longitudinal dimension. GI consulted. Further orders depending on GI recommendations. Family patient aware of abnormal findings Critical Care Time Critical Care Time: Yes Total Critical Care Time: 83 minute Due to a high probability of clinically significant, life threatening deterioration, the patient required my highest level of preparedness to intervene emergently and I personally spent this critical care time directly and personally managing the patient. This critical care time included obtaining a history; examining the patient; pulse oximetry; ordering and review of studies; arranging urgent treatment with development of a management plan; evaluation of patient's response to treatment; frequent reassessment; and discussions with other providers. It was exclusive of separately billable procedures and treating other patients and teaching time. Please see Assessment and Plan section and the rest of the note for further information on patient assessment and treatment. This case had a high probability of a clinically significant, sudden, or life threatening deterioration of this patient's condition which required my full and direct attention, intervention and personal management. Critical care time: 75 - 104 mins
[2024-10-26] VITALS (9 sets, daily range): BP systolic 123–134; BP diastolic 55–70; PULSE 35–60; RESP 16; TEMP 36.4–36.8; O2SAT 99–100
[2024-10-26] MEDS: SENNA/DOCUSATE SODIUM TABLET 1 TAB PO (02:39)
[2024-10-26 04:06] LABS: Hematocrit 40.9 % (42.0-52.0); Hemoglobin 13.4 g/dL (14.0-18.0); Immature Granulocyte Percent A 0.2 % (0-0.5); Immature Platelet Fraction Pct 3.7 % (0.9-11.2); Lymphocytes Absolute Auto 2.61 K/mm3 (0.9-3.2); Mean Corpuscular HGB Conc 32.8 g/dl (32-36); Mean Corpuscular Hemoglobin 31.0 pg (26-34); Mean Corpuscular Volume 94.7 fl (80-100); Nucleated Red Blood Cells Absolute Auto 0.000 K/mm3 (0.0-0.012); Nucleated Red Blood Cells Perc 0.0 % (0.0-0.2); Platelet Count Result 117 k/mm3 (150-375); Red Blood Count 4.32 M/mm3 (4.6-6.20); White Blood Count 6.6 K/mm3 (4.5-10.0)
[2024-10-26 04:42] LABS: Alanine Aminotransferase 414 U/L (6-50); Albumin Level 3.5 g/dL (3.5-5.1); Alkaline Phosphatase 58 U/L (38-126); Anion Gap 4 mmol/L (4-12); Aspartate Amino Transferase 421 U/L (17-59); Bilirubin,Total 0.8 mg/dL (0.2-1.3); Blood Urea Nitrogen 10 mg/dL (9-20); Calcium 8.7 mg/dL (8.4-10.2); Carbon Dioxide 24 mmol/L (22-30); Chloride 109 mmol/L (98-107); Creatine Kinase 327 U/L (55-170); Estimated CRCL calculation 101 ml/min; Estimated Glomerular Filt Rate > 60; Glucose 94 mg/dL (65-110); Magnesium 1.9 mg/dL (1.6-2.3); Potassium 4.3 mmol/L (3.4-5.0); Sodium 137 mmol/L (137-145); Total Protein 6.0 g/dL (6.3-8.2)
[2024-10-26] MEDS: LACTATED RINGERS 1,000 ML 125 ML IV CONT (06:44)
--- NOTE | 2024-10-26 08:38 | P.CONGI_ITS ---
Assessment and Plan Assessment and plan (1) Elevated liver enzymes: Code(s): R74.8 - Abnormal levels of other serum enzymes Status: Acute Assessment and Plan: Elevated transaminases in rhabdomyolysis do not necessarily indicate liver dysfunction. Transaminases are frequently elevated in rhabdomyolysis due to their release from injured skeletal muscle, not solely from hepatic injury.?This is also combination of recent PAMELA, dehydration, heat exhaustion. He denies previous history of liver disease, drug use, alcohol. I recommend to repeat set of blood work in few days and not further work up if back down to normal no objections to go home (2) PAMELA (acute kidney injury): Code(s): N17.9 - Acute kidney failure, unspecified Status: Acute Assessment and Plan: resolved (3) Elevated troponin: Code(s): R79.89 - Other specified abnormal findings of blood chemistry Status: Acute (4) Rhabdomyolysis: Qualifiers: Rhabdomyolysis type: non-traumatic Qualified Code(s): M62.82 - Rhabdomyolysis Code(s): M62.82 - Rhabdomyolysis Status: Acute (5) Near syncope: Code(s): R55 - Syncope and collapse Status: Acute Assessment and Plan: wiht dehydration (6) Nausea and vomiting in adult: Code(s): R11.2 - Nausea with vomiting, unspecified Status: Acute Assessment and Plan: resolved (7) Heat exhaustion: Code(s): T67.5XXA - Heat exhaustion, unspecified, initial encounter Status: Acute (8) Dehydration: Code(s): E86.0 - Dehydration Status: Acute GI Consult Note Consult date/time: 10/26/24 08:38 Reason for consult: elevated liver enzymes, pamela HPI: Rainer Severino is a 24 year old male healthy and quite active young male who was jogging as usual about 6 miles outside in the heat then he almost passed out, had nausea and vomiting and also diarrhea, he was quite weak. Blood work showed PAMELA that normalized now, also mild elevated troponin and elevated transaminases with CK. CTA no pe, no major findings in abd/pelvis. He is back to his baseline and feeling ok, he wonders if could go home. Review of Systems 2 Constitutional: Constitutional: Denies chills and Reports fatigue (resolved) Eyes: Eyes: Denies blurry vision ENT: Reports Normal hearing present Cardiovascular: Cardiovascular: Denies chest pain Respiratory: Respiratory: Denies chest congestion Gastrointestinal: Gastrointestinal: Denies abdominal pain, Reports diarrhea, Reports nausea and Reports vomiting Genitourinary: Genitourinary: Denies dysuria Musculoskeletal: Musculoskeletal: Denies neck pain Integumentary/Breasts: Skin/Breast: Denies rash Neurologic: Denies Abnormal speech present Psychiatric: Psychiatric: Denies anxiety PMFSH Past Medical History Medical History (Updated 10/26/24 @ 08:44 by Olvin Arellano MD) Dehydration Heat exhaustion Nausea and vomiting in adult Near syncope Elevated liver enzymes No significant past medical history Social History Social History Smoking status: Never smoker Alcohol intake: current Substance use type: does not use Lack of Transportation: No Lack of Food: Never True Current Housing: I Have Housing Concerned About Future Housing: No Difficulty Paying Gas/Electric Bills: No Difficulty Paying for Meds: No Currently Unemployed: No Education: High School Diploma/GED Difficulty w/ Childcare or Family Care: No Spiritual care concerns: No Meds Home Medications and Allergies Home Medications ?Medication ?Instructions ?Recorded ?Confirmed ?Type No Home Medications 10/24/24 10/24/24 History Allergies Allergy/AdvReac Type Severity Reaction Status Date / Time Penicillins AdvReac Unknown Rash Verified 10/25/24 20:01 Vital Signs Vital Signs - 24 hr 10/25/24 10:00 10/25/24 11:44 10/25/24 12:00 Temperature 98.0 F Pulse Rate 42 L 43 L 55 L Respiratory Rate 18 Blood Pressure 135/73 Pulse Oximetry 100 Oxygen Delivery 10/25/24 14:00 10/25/24 16:00 10/25/24 16:33 Temperature 98.2 F Pulse Rate 41 L 38 L 59 L Respiratory Rate 18 Blood Pressure 118/51 L Pulse Oximetry 100 Oxygen Delivery 10/25/24 18:00 10/25/24 19:55 10/25/24 20:00 Temperature Pulse Rate 42 L 40 L 42 L Respiratory Rate 15 Blood Pressure Pulse Oximetry 100 Oxygen Delivery Room Air 10/25/24 20:25 10/25/24 22:00 10/26/24 00:00 Temperature 97.7 F Pulse Rate 40 L 44 L 60 Respiratory Rate 15 Blood Pressure 137/83 Pulse Oximetry 100 Oxygen Delivery 10/26/24 00:17 10/26/24 00:17 10/26/24 02:00 Temperature 98.1 F Pulse Rate 54 L 54 L 44 L Respiratory Rate 16 16 Blood Pressure 124/55 L Pulse Oximetry 100 100 Oxygen Delivery Room Air 10/26/24 03:04 10/26/24 04:00 10/26/24 05:36 Temperature 98.2 F Pulse Rate 39 L 35 L 49 L Respiratory Rate 16 16 Blood Pressure 123/61 Pulse Oximetry 100 99 Oxygen Delivery Room Air 10/26/24 05:47 10/26/24 07:50 Temperature 97.6 F Pulse Rate 39 L 43 L Respiratory Rate 16 Blood Pressure 134/70 Pulse Oximetry 99 Oxygen Delivery Exam 2 Const: General: comfortable and no acute distress HENMT: Face/Nose/Sinus: Normal nares present Eyes: General: appearance normal, both eyes and all related structures Neck: Neck: no JVD Resp: Auscultation: clear to auscultation bilaterally Cardio: Rate: regular rate Rhythm: regular rhythm GI: Inspection: non-distended GI Palp: Yes Soft to palpation Skin: General skin exam: normal color Neuro: General: gait normal Speech: normal speech Extrem: General: normal to inspection Psych: Mental Status: mental status grossly normal Results Labs 10/26/24 03:45 10/26/24 03:45 Labs: Short CBC 10/26/24 Range/Units 03:45 WBC 6.6 (4.5-10.0) K/mm3 Hgb 13.4 L (14.0-18.0) g/dL Hct 40.9 L (42.0-52.0) % Plt Count 117 L (150-375) k/mm3 [facility] 10/25/24 10/26/24 17:18 03:45 Sodium 139 137 Potassium 3.9 4.3 Chloride 108 H 109 H Carbon Dioxide 26 24 BUN 13 D 10 Creatinine 1.08 1.02 Glucose 92 94 Calcium 9.1 8.7 Cardiac Enzymes 10/25/24 10/25/24 10/26/24 Range/Units 13:15 17:18 03:45 Total Creatine Kinase 433 H 327 H (55-170) U/L Troponin I 0.060 H* (0.000-0.034) ng/mL Liver Function 10/25/24 10/26/24 Range/Units 17:18 03:45 Total Bilirubin 1.0 0.8 (0.2-1.3) mg/dL AST 252 H 421 H (17-59) U/L ALT 240 H 414 H (6-50) U/L Alkaline Phosphatase 56 58 (38-126) U/L Albumin 4.1 3.5 (3.5-5.1) g/dL
--- NOTE | 2024-10-26 08:50 | P.DS_ITS ---
DS: Admitting Diagnosis Discharge Date 10/26/2024 Admitting Diagnosis Dehydration, PAMLEA, Rhabdomyolysis DS: Discharge Diagnosis Discharge Diagnosis (1) Syncope: Code(s): R55 - Syncope and collapse Status: Acute Assessment and Plan: - syncope that occurred post 6 mi run with 2 mi cool down, see HPI. Unclear length of time of loss of consciousness. - EKG initially showing sinus tachycardia, rate 109, right axis deviation, possible right atrial enlargement, left atrial enlargement, delayed precordial RS transition, minimal Q-waves inferior/lateral leads, ST elevation in anterior leads probably early repolarization. - troponin: 0.273 -> 0.575 -> 0.578, given 324 of ASA - BNP within normal limits for age, however given prolong syncope. Echo ordered - hemoglobin slightly elevated, suspected acute kidney injury, and electrolyte derangements raise concerns for acute dehydration. Continue rehydration - UDS negative - viral PCR negative - cardiology reviewed and OK with discharge 10/26/2024 (2) Elevated troponin: Code(s): R79.89 - Other specified abnormal findings of blood chemistry Status: Acute Assessment and Plan: Troponin trend reviewed and c/w rhabdomyolysis, pamela Echo OK CTA chest OK with elevated IVC reflux likely due to fluid load (3) PAMELA (acute kidney injury): Code(s): N17.9 - Acute kidney failure, unspecified Status: Acute Assessment and Plan: - creatinine 2.34, BUN 24, GFR 35 upon admission with no prior available for comparison. Given patient is 24 with no comorbidities, high suspicion for acute kidney injury. - mild electrolyte derangements, increased hemoglobin, increased albumin raise suspicion for acute dehydration as etiology for PAMELA. Plan for rehydration over the next 24 hours. - CK elevated, trending upward - check urine sodium, protein/creatinine, urea - UA with the 11-20 urine WBC. Possible UTI follow urine culture will order ceftriaxone -10/26 creatinine 1.02 (4) Rhabdomyolysis: Qualifiers: Rhabdomyolysis type: non-traumatic Qualified Code(s): M62.82 - Rhabdomyolysis Code(s): M62.82 - Rhabdomyolysis Status: Acute Assessment and Plan: - CK 353. Trending up to 455 - patient very active, runs/lips/when this regularly and was out for 6 mile run. Raises concerns for rhabdomyolysis secondary to strenuous exercise. Plan for IV hydration and trend CK/renal function. - 10/26 ck 327 (5) Abnormal AST and ALT: Code(s): R74.8 - Abnormal levels of other serum enzymes Status: Acute Assessment and Plan: - Likely related to dehydration, liver ischemia - Viral hepatitis panel pending 10/26/2024 - F/u as outpatient DS: Summary Hospital Course Hospital Course: 24-year-old gentleman went on a 6 mi run with her 2 mild cool down on the morning of October 24 in extreme heat. Upon return home he was staggering nauseated vomiting and having diarrhea. When he presented to family and did on his face and scratches on his extremities that were not present before his rock. He was brought the emergency department we was found to elevated creatinine as outlined below as well as elevated troponins as outlined below. D-dimer was elevated as well. LFTs were elevated and increased during hospitalization as outlined below. He was given IV fluids labs were monitored he tolerated his diet. Diarrhea nausea vomiting resolved the same day he was admitted. He was up and about independently coherent normotensive bradycardia consistent with his extreme level fitness seen on telemetry. He did have mild sinus arrhythmia. He denied intake of alcohol acetaminophen or nonsteroidal anti-inflammatory drugs at any time prior to admission. 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 He will avoid extreme temperatures during his workouts. Time Spent with Patient Time attestation: Total time spent providing and/or coordinating discharge services: Exam Narrative: HEENT: PERRL, sclerae nonicteric, pharyngeal mucosa pink and intact NECK: No JVD, adenopathy, or thyromegaly CHEST: Clear to auscultation. Normal effort HEART: NL S1/S2, regular, no murmur ABDOMEN: BS+, soft, nontender, no mass, no bruits EXTREMITIES: No cyanosis, edema, or clubbing NEUROLOGIC: CN intact and symmetric to inspection, station and gait WNL MUSCULOSKELETAL: Tone and strength symmetric PSYCH: Alert. Oriented to person, place, and time DS: Data Data Completed and Pending Labs on day of discharge: Labs from last 24 hours 10/26/24 10/25/24 10/25/24 03:45 17:18 13:15 WBC 6.6 RBC 4.32 L Hgb 13.4 L Hct 40.9 L MCV 94.7 MCH 31.0 MCHC 32.8 RDW 14.2 Plt Count 117 L MPV 10.1 Immature Gran % (Auto) 0.2 Neut % (Auto) 46.4 Lymph % (Auto) 39.5 Levy % (Auto) 12.4 H Eos % (Auto) 0.9 Baso % (Auto) 0.6 Lymph # (Auto) 2.61 Levy # (Auto) 0.8 H Eos # (Auto) 0.1 Baso # (Auto) 0.0 Abs Immat Gran (auto) 0.01 Absolute Neuts (auto) 3.1 Absolute Nucleated RBC 0.000 Nucleated RBC % 0.0 % Immature Plt Fraction 3.7 Sodium 137 139 Potassium 4.3 3.9 Chloride 109 H 108 H Carbon Dioxide 24 26 Anion Gap 4 5 BUN 10 13 D Creatinine 1.02 1.08 Estim Creat Clear Calc 101 96 Estimated GFR > 60 > 60 Glucose 94 92 Calcium 8.7 9.1 Magnesium 1.9 Total Bilirubin 0.8 1.0 AST 421 H 252 H ALT 414 H 240 H Alkaline Phosphatase 58 56 Total Creatine Kinase 327 H 433 H Troponin I 0.060 H* Total Protein 6.0 L 6.9 Albumin 3.5 4.1 Discharge Plan Discharge Consulting providers: Roge Garcia; Chance Chavez; Olvin Arellano Discharging Clinician: Raymon Mcgovern Patient Disposition: Home Activity: as tolerated Diet: regular Patient Instructions: Electrolyte Supplement (By mouth), Electrolyte/Mineral Supplement (By mouth), Acute Kidney Injury (DC), Heat Exhaustion (GEN), Liquids and Hydration for Athletes (DC), Syncope (GEN), Rhabdomyolysis (DC), Transthoracic Echocardiogram (DC), High Troponin Levels (GEN) Patient Language: Kosovan Stand Alone Forms: General Discharge Information, Work/School Release IP Follow-up/Referrals: MD Evi [Other] - Call for Appointment (Please see and evaluate prior to basic training) Other Ambulatory Orders: Comprehensive Metabolic Panel (Routine) Timeframe: 3 Days Location: Determined by Patient Ordered By: Raymon Mcgovern Date of admission: 10/24/24 15:58 Primary Care Provider: UNKNOWN,DOCTOR Admitting Provider: Ld Mejia Attending physician on admission: Ld Mejia Condition: Improved
[2024-10-26 10:35] LABS: Hepatitis B Surface Antigen Negative (Negative)
[2024-10-26 10:40] LABS: HAV RESULT Negative (Negative)
--- NOTE | 2024-10-26 11:03 | PM.PNCARD ---
Progress Note: A&P Assessment and Plan (1) Elevated troponin: Code(s): R79.89 - Other specified abnormal findings of blood chemistry Status: Acute Assessment and Plan: 0.273, 0.575, 0.578, 0.060. In this situation, his elevated troponin is not related to acute coronary syndrome. Troponin leak is related to rhabdomyolysis and acute kidney injury plus/minus heat exhaustion. (2) PAMELA (acute kidney injury): Code(s): N17.9 - Acute kidney failure, unspecified Status: Acute Assessment and Plan: Normalized (3) Rhabdomyolysis: Qualifiers: Rhabdomyolysis type: non-traumatic Qualified Code(s): M62.82 - Rhabdomyolysis Code(s): M62.82 - Rhabdomyolysis Status: Acute Assessment and Plan: Improved (4) Syncope: Code(s): R55 - Syncope and collapse Status: Acute Assessment and Plan: This is most likely related to significant dehydration because of strenuous exercise in extreme heat. He does not have any significant bradycardia, high-degree blocks, pauses, or any tachyarrhythmias that would explain syncope. no arrhythmias seen on monitor. Plan Patient is going to be discharged with outpatient plan as per Dr. Mcgovern. Outpatient labs early next week. Subjective Date/time seen: 10/26/24 11:03 Interval history: 24-year-old admitted with weakness, abnormal electrolytes Date of service 10/26/2024: He feels completely normal at this point. Has no chest pain, shortness of breath. Review of Systems Review of Systems: All systems reviewed & are unremarkable except as noted in HPI and below Constitutional: Constitutional: Denies body ache(s) Eyes: Eyes: Denies blurry vision ENT: Reports Normal hearing present Cardiovascular: Cardiovascular: Denies chest pain Respiratory: Respiratory: Denies hemoptysis Genitourinary: Genitourinary: Denies hematuria Musculoskeletal: Musculoskeletal: Denies arthralgias Integumentary/Breasts: Skin/Breast: Denies dry skin Neurologic: Denies Abnormal speech present Psychiatric: Psychiatric: Denies anxiety Endocrine: Endocrine: Denies change in body appearance Hematologic/Lymphatic: Hematologic/Lymphatic: Denies easy bleeding Allergic/Immunologic: Allergic/Immunologic: Denies GI upset with certain foods Exam Narrative: Appears stated and stated age Const: General: comfortable, no acute distress, alert and awake Orientation/consciousness: patient oriented x3 HENMT: Head: normal to inspection Face/Nose/Sinus: Normal nares present Eyes: General: appearance normal, both eyes and all related structures Sclera: sclerae normal Neck: Neck: normal visual inspection, supple and no JVD Carotids: normal carotid upstroke Resp: Effort & Inspection: normal respiratory effort Auscultation: clear to auscultation bilaterally Cardio: Rate: regular rate Rhythm: regular rhythm Heart sounds: S1 normal heart sound present, S2 normal heart sound present and no murmurs GI: Auscultation: normal bowel sounds Skin: General skin exam: normal color Neuro: General: patient oriented x3 Speech: normal speech Extrem: General: normal to inspection Psych: Appearance: grossly normal Mental Status: mental status grossly normal Objective Data Vital Signs Vital Signs: Vital Signs - 24 hr 10/25/24 11:44 10/25/24 12:00 10/25/24 14:00 Temperature 36.7 C Pulse Rate 43 L 55 L 41 L Respiratory Rate 18 Blood Pressure 135/73 Pulse Oximetry 100 Oxygen Delivery 10/25/24 16:00 10/25/24 16:33 10/25/24 18:00 Temperature 36.8 C Pulse Rate 38 L 59 L 42 L Respiratory Rate 18 Blood Pressure 118/51 L Pulse Oximetry 100 Oxygen Delivery 10/25/24 19:55 10/25/24 20:00 10/25/24 20:25 Temperature 36.5 C Pulse Rate 40 L 42 L 40 L Respiratory Rate 15 15 Blood Pressure 137/83 Pulse Oximetry 100 100 Oxygen Delivery Room Air 10/25/24 22:00 10/26/24 00:00 10/26/24 00:17 Temperature 36.7 C Pulse Rate 44 L 60 54 L Respiratory Rate 16 Blood Pressure 124/55 L Pulse Oximetry 100 Oxygen Delivery 10/26/24 00:17 10/26/24 02:00 10/26/24 03:04 Temperature Pulse Rate 54 L 44 L 39 L Respiratory Rate 16 16 Blood Pressure Pulse Oximetry 100 100 Oxygen Delivery Room Air Room Air 10/26/24 04:00 10/26/24 05:36 10/26/24 05:47 Temperature 36.8 C Pulse Rate 35 L 49 L 39 L Respiratory Rate 16 Blood Pressure 123/61 Pulse Oximetry 99 Oxygen Delivery 10/26/24 07:50 10/26/24 08:00 Temperature 36.4 C Pulse Rate 43 L 41 L Respiratory Rate 16 Blood Pressure 134/70 Pulse Oximetry 99 Oxygen Delivery Intake/Output Intake/Output: Intake & Output 10/23/24 10/24/24 10/25/24 10/26/24 23:59 23:59 23:59 23:59 Intake Total 3540 7240.8 2600 Output Total 1 1350 2980 Balance 3539 5890.8 -380 Meds/Results Radiology Results: ITS Impressions Head CT 10/24/24 13:46 IMPRESSION: 1. No acute intracranial process identified. Chest X-Ray 10/24/24 15:32 IMPRESSION: No acute cardiopulmonary process. Chest CTA 10/25/24 22:08 IMPRESSION: No pulmonary embolus. No thoracic aortic dissection. The lungs are clear. ADDENDUM: 10/25/246 Reflux of intravenous contrast retrograde into the inferior vena cava suggests a component of right heart dysfunction, consistent with the elevated right atrial pressure seen on today's cardiac echo. Abdomen/Pelvis CT 10/25/24 22:20 IMPRESSION: Unremarkable noncontrast enhanced CT examination of the abdomen and pelvis, as detailed above. Labs Labs: Laboratory Results - last 24 hr 10/25/24 10/25/24 10/26/24 13:15 17:18 03:45 WBC 6.6 RBC 4.32 L Hgb 13.4 L Hct 40.9 L MCV 94.7 MCH 31.0 MCHC 32.8 RDW 14.2 Plt Count 117 L MPV 10.1 Immature Gran % (Auto) 0.2 Neut % (Auto) 46.4 Lymph % (Auto) 39.5 Trigg % (Auto) 12.4 H Eos % (Auto) 0.9 Baso % (Auto) 0.6 Lymph # (Auto) 2.61 Trigg # (Auto) 0.8 H Eos # (Auto) 0.1 Baso # (Auto) 0.0 Abs Immat Gran (auto) 0.01 Absolute Neuts (auto) 3.1 Absolute Nucleated RBC 0.000 Nucleated RBC % 0.0 % Immature Plt Fraction 3.7 Sodium 139 137 Potassium 3.9 4.3 Chloride 108 H 109 H Carbon Dioxide 26 24 Anion Gap 5 4 BUN 13 D 10 Creatinine 1.08 1.02 Estim Creat Clear Calc 96 101 Estimated GFR > 60 > 60 Glucose 92 94 Calcium 9.1 8.7 Magnesium 1.9 Total Bilirubin 1.0 0.8 AST 252 H 421 H ALT 240 H 414 H Alkaline Phosphatase 56 58 Total Creatine Kinase 433 H 327 H Troponin I 0.060 H* Total Protein 6.9 6.0 L Albumin 4.1 3.5 Hepatitis A IgM Ab Negative Hep Bs Antigen Negative Hepatitis C Ab Screen Negative Echo 2. Left ventricular chamber dimension is normal. 3. There is no increased left ventricular wall thickness. 4. The left ventricular diastolic function is normal. 5. Left ventricular systolic function is low normal, estimated at 50-55. 6. There is mild mitral valve regurgitation. 7. There is mild tricuspid valve regurgitation. 8. There is mild pulmonic regurgitation. 9. Dilated inferior vena cava with <50% collapse upon inspiration consistent with elevated right atrial pressure, 15 mmHg.
[2024-10-27 09:07] LABS: Hep B Core Ab, Total Negative (Negative)
== END 2024-10-26 10:25 | disposition home or self-care (01) | DRG 641 ==
LOC: ANHED 13:44 → ANHIMU 17:10
PROVIDERS: Emergency Medicine; Internal Medicine; Nurse Practitioner; Nurse Practitioner Gerontology; Student in an Organized Health Care Education/Training Program; Admitting Provider General Practice; Emergency Provider Student in an Organized Health Care Education/Training Program; Visit Provider Internal Medicine
DX: E86.0 Dehydration (principal); N17.9 Acute kidney failure, unspecified; M62.82 Rhabdomyolysis; T67.5XXA Heat exhaustion, unspecified, initial encounter; R55 Syncope and collapse; R79.89 Other specified abnormal findings of blood chemistry; R19.7 Diarrhea, unspecified; R74.8 Abnormal levels of other serum enzymes; Z20.822 Contact with and (suspected) exposure to COVID-19
CPT/HCPCS: 36415; 70450; 71045; 71275; 74176; 80053; 80307; 81001; 82550; 82570; 82948; 83735; 83880; 84156; 84300; 84484; 84540; 85025; 85055; 85380; 86704; 86709; 86803; 87086; 87340; 87637; 93005; 93306; 96361; 96374; 96375; 99285; A9270; J0696; J7030; J7120; Q9967